=== PATIENT | male | born 1945 | race Caucasian/White ===

== ENCOUNTER 2017-03-16 13:29 | Observation (INO) ==
[2017-03-16] MEDS ORDERED: D5% in 0.9% NACL 1,000 ML IVC SCH (14:45)
--- NOTE | 2017-03-16 14:46 | Emergency Department Note ---
Disposition Clinical Impression: Generalized weakness Anemia Qualifiers: Anemia type: unspecified type Qualified Code(s): D64.9 - Anemia, unspecified Disposition: Admitted As Inpatient Condition: Undetermined [facility]Primary Care Provider[facility] - Forms: ED Satisfaction Letter Time of Disposition: 15:34 Weakness HPI - General Chief complaint: ED Weakness Stated complaint: blood transfusion/cancer center Time Seen by Provider: 03/16/17 13:57 Source: patient Mode of arrival: wheelchair Limitations: no limitations Nursing Notes Reviewed: Yes Vital Signs Reviewed: Yes - History of Present Illness HPI Narrative: 71-year-old male with history of lymphoma arrives [facility] emergency department after attempting to go into [facility] for a blood transfusion for anemia associated with his chemotherapy. The patient states that upon him transported in to the cancer center he had an episode of bowel incontinence and felt extremely weak. The patient states that he went home and then had an episode where he collapsed without falling or striking his head with no loss of consciousness at home in his driveway. The patient states he was almost too weak to get into the vehicle to come to the emergency department for evaluation. The patient has had episodes of anemia over the course of the past month with his hemoglobin being around 8.5. The patient's hemoglobin yesterday was 8.7. We will repeat the patient's labs here in the emergency department today. The patient will be given IV dextrose fluids and likely admitted to the hospital for weakness and transfusion upon admission. We discussed the case with the on-call oncologist, Dr. Gray, who agreed to this plan and agreed that the patient can be transfused once the patient is admitted to the floor. They will be consulted on the patient consulted started in place. Pt Subjective Complaint: generalized weakness/fatigue Duration: constant, gradually worsening Location: generalized Migration: none Pain Severity: none Pain Scale: 0 Improves with: none Worsens with: none Context: history of similar Associated symptoms: Reports: denies other symptoms - Related Data Home Medications Medication Instructions Recorded Confirmed Acetaminophen [Pain Relief] 500 mg PO Q4-6H PRN 11/03/16 03/16/17 Dabigatran [Pradaxa] 150 mg PO BID 11/03/16 03/16/17 Digoxin [Lanoxin] 0.25 mg PO DAILY 11/03/16 03/16/17 Diltiazem HCl [Diltiazem 24Hr Cd] 180 mg PO DAILY 11/03/16 03/16/17 Metoprolol XL (24 HR) Succ [Toprol 50 mg PO DAILY 03/16/17 03/16/17 XL] Petrolatum,White [Aloe [place]] 1 appl TP ONCE 03/16/17 03/16/17 Previous Rx's Medication Instructions Recorded Dexamethasone [Decadron] 4 mg PO BID #40 tab 12/09/16 Magic Mouthwash [Magic Mouthwash 10 ml PO QID PRN #240 ml 12/09/16 BLM] Ondansetron [Zofran] 4 mg PO Q8HR PRN #90 tablet 12/09/16 Prochlorperazine Maleate 10 mg PO Q8HR PRN #90 tablet 12/09/16 [Compazine] Transparent Dressing [Tegaderm] 1 each TP DAILY #30 bandage 02/23/17 Allergies Allergy/AdvReac Type Severity Reaction Status Date / Time Erythromycin Base Allergy Hives Verified 03/16/17 13:47 codeine AdvReac Confusion Verified 03/16/17 13:47 tamsulosin [From Flomax] AdvReac Shortness Verified 03/16/17 14:59 Of Breath All systems ED: reviewed and negative except as stated. Constitutional: Reports: weakness, weight change (Decreased). Denies: fever, chills Cardiovascular: Denies: chest pain, palpitations, dyspnea on exertion, edema, syncope Respiratory: Denies: cough, dyspnea, wheezes, hemoptysis, stridor Gastrointestinal: Denies: abdominal pain, nausea, vomiting, diarrhea, constipation, hematemesis, melena, hematochezia Genitourinary: Denies: urgency, dysuria, frequency, hematuria Musculoskeletal: Denies: back pain, neck pain, arthralgia, myalgia Integumentary: Denies: rash, abrasion, lesions Neurological: Reports: weakness. Denies: headache, numbness, paresthesias, confusion, abnormal gait, vertigo Past Medical History - Past Medical History Attestation: Yes The following information was validated with the patient. Source: patient, old records reviewed Medical history: Reports: atrial fibrillation, cancer, COPD, hypertension Surgical history: Reports: other Psychiatric history: Reports: no psych history - Social History Smoking Status: Current some day smoker Smokeless Tobacco Status: Yes Alcohol use: Reports: none Drug use: Reports: none Physical Exam - General Limitations: no limitations General appearance: alert, in no apparent distress, cachectic - Head Head exam: atraumatic, normocephalic, normal inspection - Eye Eye exam: Present: normal appearance, PERRL, EOMI - ENT ENT exam: normal exam, normal oropharynx, mucous membranes moist - Neck Neck exam: Present: normal inspection, full ROM, trachea midline - Chest Chest inspection: Present: normal inspection, symmetric chest wall rise - Respiratory Respiratory exam: Present: normal lung sounds bilaterally - Cardiovascular Cardiovascular exam: Present: regular rate, normal rhythm, normal heart sounds - Abdominal Exam Abdominal exam: Present: soft, Non-Tender. Absent: tenderness, distention, guarding, rebound, rigidity - Extremities Exam Extremities exam: Present: full ROM, pedal edema (1+ pitting). Absent: tenderness - Neurological Exam Neurological exam: Present: alert, oriented X3 Course Vital Signs Temperature 98.3 F 03/16/17 13:41 Pulse Rate 105 03/16/17 13:41 Respiratory Rate 18 03/16/17 13:41 Blood Pressure 91/62 03/16/17 13:41 O2 Sat by Pulse Oximetry 94 03/16/17 13:41 Temperature 98.3 F 03/16/17 13:41 Pulse Rate 87 03/16/17 14:16 Respiratory Rate 20 03/16/17 14:16 Blood Pressure 106/77 03/16/17 14:16 O2 Sat by Pulse Oximetry 93 03/16/17 14:16 Oxygen Delivery Oxygen Delivery Room Air Weakness - [facility] Narrative Medical decision making narrative: Patient was started on IV fluids as well as labs. The patient's CBC demonstrates hemoglobin that has dropped to 8.1. We will admit the patient to the hospitalist at this time. Accepted by Dr. King. - Medical Records Medical records reviewed: Yes I reviewed the patient's medical records. - Lab Data Lab results reviewed: Yes I reviewed the patient's lab results. Result diagrams: 03/16/17 14:47 03/16/17 14:47 Lab Results 03/16/17 03/16/17 Range/Units 14:47 14:47 WBC 8.9 (4.3-11.1) K/mcL RBC 2.83 L (4.19-5.50) M/mcL Hgb 8.1 L (12.9-16.9) g/dL Hct 25.5 L (37.5-50.1) % MCV 90.1 (83.0-100.0) fL MCH 28.6 (28.0-33.3) pg MCHC 31.8 (31.6-35.5) g/dL RDW 17.2 H (11.5-14.5) % Plt Count 307 (140-400) K/mcL MPV 10.8 (9.4-12.4) fL Immature Gran % 2.7 (0-4) % Seg Neutrophils % 85.3 % Lymphocytes % 4.0 % Monocytes % 7.7 % Eosinophils % 0.1 % Basophils % 0.2 % Neutrophils # 7.6 (1.6-8.9) K/mcL Lymphocytes # 0.4 L (0.6-4.6) K/mcL Monocytes # 0.7 (0.0-1.3) K/mcL Eosinophils # 0.0 (0.0-0.6) K/mcL Basophils # 0.0 (0.0-0.2) K/mcL Sodium 130 L (136-145) mEq/L Potassium 4.2 (3.5-4.5) mEq/L Chloride 94 L (98-109) mEq/L Carbon Dioxide 28 (19-29) mEq/L BUN 19 (8-26) mg/dL Creatinine 0.79 (0.72-1.25) mg/dL Est GFR ( Amer) > 60 (> 60) Est GFR (Non-Af Amer) > 60 (> 60) BUN/Creatinine Ratio 24 (6-26) Glucose 92 (70-99) mg/dL Calculated Osmolality 272 L (280-300) Calcium 8.3 L (8.6-10.8) mg/dL Attestation Statement - Attestation Attestation: I examined this patient and my medical decision-making was reviewed with the Resident Physician, Dr. Ramos. I agree with the documented findings, disposition and treatment plan as described except to the extent set forth below. Patient is a 71-year-old white male with a history of lymphoma is being currently treated at the cancer center at [facility]. Patient was on his way into the cancer center for a blood transfusion today and had an episode of bowel incontinence and generalized weakness unable to ambulate. He returned home and was planning to come back to the cancer Center but complained of ongoing generalized weakness and actually stumbled and fell in his driveway but denies any injuries related to the fall did not hit his head no back pain patient denies any pain. Patient's daughter brings him into the emergency department today as he was instructed to do so by the cancer center and would likely require admission with IV fluid resuscitation as well as medicines for his symptoms. Patient with a hemoglobin of around 8.5 over the last month. Most recent value was 8.7. She is on Pradaxa for A. fib, but denies any bright red blood per rectum or tarry black stools. Patient with no other complaints today on evaluation besides generalized weakness. Patient's physical exam findings as documented. We started IV fluids and antiemetics on arrival with improvement in patient's blood pressure. Patient was tachycardic and hypotensive on arrival. We spoke with his oncologist at the cancer center who recommended to go ahead with transfusion and they will consult on the patient. We will discuss the case with the hospitalist. Labs done in the emergency department show hemoglobin today is 8.1. Patient is amenable to admission for further evaluation and treatment.
[2017-03-16 15:06] LABS: Basophils % 0.2 %; Eosinophils % 0.1 %; Hematocrit 25.5 % (37.5-50.1); Hemoglobin 8.1 g/dL (12.9-16.9); Immature Granulocytes % 2.7 % (0-4); Lymphocytes # 0.4 K/mcL (0.6-4.6); Mean Corpuscular HGB Conc 31.8 g/dL (31.6-35.5); Mean Corpuscular Hemoglobin 28.6 pg (28.0-33.3); Mean Corpuscular Volume 90.1 fL (83.0-100.0); Mean Platelet Volume 10.8 fL (9.4-12.4); Monocytes # 0.7 K/mcL (0.0-1.3); Monocytes % 7.7 %; Neutrophils # 7.6 K/mcL (1.6-8.9); Platelet Count 307 K/mcL (140-400); Red Blood Count 2.83 M/mcL (4.19-5.50); Red Cell Distribution Width 17.2 % (11.5-14.5); Segmented Neutrophils % 85.3 %
[2017-03-16 15:10] LABS: BUN/Creatinine Ratio 24 (6-26); Blood Urea Nitrogen 19 mg/dL (8-26); Calcium 8.3 mg/dL (8.6-10.8); Carbon Dioxide 28 mEq/L (19-29); Chloride 94 mEq/L (98-109); Glucose 92 mg/dL (70-99); Osmolality,Calculated 272 (280-300); Potassium 4.2 mEq/L (3.5-4.5); Sodium 130 mEq/L (136-145); eGFR For African Americans > 60 (> 60); eGFR For Non-African Americans > 60 (> 60)
[2017-03-16] MEDS ORDERED: Acetaminophen 325 MG TABLET PO PRN (17:34)
[2017-03-16] MEDS ORDERED: *HR* Promethazine 25 MG/ML VIAL IVP PRN (17:34)
[2017-03-16] MEDS ORDERED: *HR* Morphine 2 MG/ML SYRINGE IVP PRN (17:34)
[2017-03-16] MEDS ORDERED: *HR* HYDROcodone/Acet 5/325 mg TABLET PO PRN (17:34)
[2017-03-16] MEDS ORDERED: Naloxone 0.4 MG/ML INJ IVP PRN (17:34)
[2017-03-16] MEDS ORDERED: Ondansetron 4 MG/2 ML VIAL IVP PRN (17:34)
[2017-03-16] MEDS ORDERED: Magic Mouthwash 10 ML UD Cup PO PRN (17:54)
--- NOTE | 2017-03-16 17:54 | Internal Med History&Physical ---
Date of Encounter: 03/16/17 Time of Encounter: 16:00 Assessment and Plan (1) Anemia Current visit: Yes Status: Acute Will admit the pt into Tele for observation His Hb dropped down to 8.1 from 11 in 6 weeks due to chemotherapy And he is symptomatic now Agree with Heme Onc eval to transfuse the pt 1 U PRBC Pt denied any melena / hematuria check Iron profile in AM Qualifiers: Anemia type: unspecified type Qualified Code(s): D64.9 - Anemia, unspecified (2) Dehydration Current visit: No Status: Acute Due to active chemo cont IV fluids (3) HTN (hypertension) Current visit: Yes Status: Acute resumed home meds Qualifiers: Qualified Code(s): I10 - Essential (primary) hypertension (4) Generalized weakness Current visit: Yes Status: Acute due to Hodgkin's lymphoma and active chemo PT / OT eval (5) Hodgkin's lymphoma Current visit: No Status: Acute Heme Onc consulted Qualifiers: Qualified Code(s): C81.90 - Hodgkin lymphoma, unspecified, unspecified site (6) Paroxysmal a-fib Current visit: Yes Status: Acute rate controlled with home med Cardizem and Metoprolol On Pradaxa for anticoag (7) Bilateral leg edema Current visit: Yes Status: Chronic could be dependent edema - pt stated he did try lasix before, but his swelling never went away recommend to keep elevated legs hold on diuretics now due to dehydration Internal Medicine - H&P: HPI Chief complaint: Generalized weakness / lethargic Admitted From: Emergency Dept Plans for Post Hospital Care: Home History of present illness: Mr. Yañez is a 71 year old male with history of Paroxysmal Afib on Pradaxa for anticoagulation, who also had prostate cancer had multiple radiotherapy 4yrs ago, now recently diagnosed with Hodgkin's lymphoma presented to [facility] emergency department after attempting to go into [facility] cancer Center for a blood transfusion for anemia associated with his chemotherapy. The patient states that upon him transported in to the cancer center he had an episode of bowel incontinence and felt extremely weak. The patient states that he went home and then had an episode where he collapsed without falling or striking his head with no loss of consciousness at home in his driveway. The patient states he was almost too weak to get into the vehicle to come to the emergency department for evaluation. The patient has had episodes of anemia over the course of the past month with his hemoglobin being around 8.5. The patient's hemoglobin yesterday was 8.7 and today in the ER it was 8.1. ER attending discussed the case with the on-call oncologist, Dr. Gray, who agreed to this plan and agreed that the patient can be transfused once the patient is admitted to the floor. Pt denied any CP / SOB. feels little better now with Iv fluids. Past Med Surg Social Fam HX - Past Medical History Medical history: atrial fibrillation, cancer, COPD, hypertension Psychiatric history: no psych history - Past Surgical History Surgical History: other - Social History Smoking Status: Current some day smoker Smokeless Tobacco Status: Yes Alcohol use: none Drug use: none Internal Medicine - H&P: Meds Acetaminophen [Pain Relief] 500 mg PO Q4-6H PRN 11/03/16 [History] Dabigatran [Pradaxa] 150 mg PO BID 11/03/16 [History] Digoxin [Lanoxin] 0.25 mg PO DAILY 11/03/16 [History] Diltiazem HCl [Diltiazem 24Hr Cd] 180 mg PO DAILY 11/03/16 [History] Dexamethasone [Decadron] 4 mg PO BID #40 tab 12/09/16 [Rx] Magic Mouthwash [Magic Mouthwash BLM] 10 ml PO QID PRN #240 ml 12/09/16 [Rx] Ondansetron [Zofran] 4 mg PO Q8HR PRN #90 tablet 12/09/16 [Rx] Prochlorperazine Maleate [Compazine] 10 mg PO Q8HR PRN #90 tablet 12/09/16 [Rx] Transparent Dressing [Tegaderm] 1 each TP DAILY #30 bandage 02/23/17 [Rx] Metoprolol XL (24 HR) Succ [Toprol XL] 50 mg PO DAILY 03/16/17 [History] Petrolatum,White [Aloe [place]] 1 appl TP ONCE 03/16/17 [History] 3 Allergy/AdvReac Type Severity Reaction Status Date / Time Erythromycin Base Allergy Hives Verified 03/16/17 13:47 codeine AdvReac Confusion Verified 03/16/17 13:47 tamsulosin [From Flomax] AdvReac Shortness Verified 09/21/17 14:59 Of Breath All Systems PM: A 10-system review of systems was performed and is negative for pertinent findings except as documented above in the HPI. Review of systems: All the systems are reviewed everything is benign except the systems and symptoms I mentioned in the history of present illness - Constitutional Vitals: Temp Pulse Resp BP Pulse Ox 97.5 F L 102 16 117/72 93 03/16/17 17:49 03/16/17 17:49 03/16/17 17:49 03/16/17 17:49 03/16/17 17:49 General appearance: Present: A&O X 3, no acute distress Exam: Looks weak and lethargic - Head Head exam: Present: atraumatic, normal inspection - Respiratory Respiratory exam: Present: decreased breath sounds, wheezes (mild). Absent: rales, respiratory distress, rhonchi - Cardiovascular Cardiovascular exam: Present: RRR, +S1, +S2. Absent: systolic murmur - GI/Abdominal GI/Abdominal exam: Present: soft. Absent: rebound, rigid, tenderness - Extremities Exam Extremities exam: Present: pedal edema (2+). Absent: calf tenderness, tenderness - Psychiatric Psychiatric exam: Present: depressed Internal Med - H&P Results - Labs CBC & Chem 7: 03/16/17 14:47 03/16/17 14:47
[2017-03-16] MEDS: D5% in 0.9% NACL 1,000 ML IVC SCH (18:21)
[2017-03-16] MEDS: *HR* Dabigatran 150 MG CAPSULE PO SCH (21:34)
[2017-03-16] MEDS: Famotidine 20 MG TABLET PO SCH (21:34)
[2017-03-16] MEDS ORDERED: 0.9 % Sodium Chloride 250 ML ONE (22:08)
[2017-03-17 03:47] LABS: Basophils % 0.3 %; Eosinophils % 0.3 %; Hematocrit 27.2 % (37.5-50.1); Hemoglobin 8.8 g/dL (12.9-16.9); Immature Granulocytes % 2.3 % (0-4); Lymphocytes # 0.4 K/mcL (0.6-4.6); Lymphocytes % 3.4 %; Mean Corpuscular HGB Conc 32.4 g/dL (31.6-35.5); Mean Corpuscular Volume 89.8 fL (83.0-100.0); Mean Platelet Volume 10.8 fL (9.4-12.4); Monocytes # 0.9 K/mcL (0.0-1.3); Neutrophils # 9.2 K/mcL (1.6-8.9); Platelet Count 288 K/mcL (140-400); Red Blood Count 3.03 M/mcL (4.19-5.50); Red Cell Distribution Width 17.1 % (11.5-14.5); Segmented Neutrophils % 85.7 %
[2017-03-17 04:00] LABS: % Iron Saturation 23 % (20-55); Iron 25 mcg/dL (65-175); Transferrin 79 mg/dL (174-364)
[2017-03-17 04:06] LABS: Alanine Aminotransferase 11 Units/L (0-55); Albumin/Globulin Ratio 0.8 (1.1-2.2); Alkaline Phosphatase 123 Units/L (38-126); Aspartate Amino Transferase 18 Units/L (5-34); BUN/Creatinine Ratio 20 (6-26); Bilirubin,Total 0.8 mg/dL (0.2-1.2); Blood Urea Nitrogen 16 mg/dL (8-26); Calcium 7.8 mg/dL (8.6-10.8); Carbon Dioxide 25 mEq/L (19-29); Chloride 97 mEq/L (98-109); Globulin 2.4 g/dL (2.4-3.5); Glucose 106 mg/dL (70-99); Magnesium 1.4 mg/dL (1.6-2.6); Osmolality,Calculated 274 (280-300); Phosphorous 3.1 mg/dL (2.3-4.7); Sodium 131 mEq/L (136-145); Total Protein 4.3 g/dL (6.0-8.3); eGFR For African Americans > 60 (> 60); eGFR For Non-African Americans > 60 (> 60)
[2017-03-17 04:09] LABS: Albumin 1.9 g/dL (3.5-5.0)
[2017-03-17] MEDS ORDERED: Magnesium Sulfate 2 GM in D5% in Water 100 ML IVPB ONE (08:10)
[2017-03-17] MEDS: D5% in 0.9% NACL 1,000 ML IVC SCH ×2 (08:10→08:30)
[2017-03-17] MEDS: *HR* Dabigatran 150 MG CAPSULE PO SCH ×2 (08:13→08:15)
[2017-03-17] MEDS: Famotidine 20 MG TABLET PO SCH (08:13)
[2017-03-17] MEDS: Diltiazem CD (24hr) 180 MG CAPSULE PO SCH ×2 (08:13→08:18)
[2017-03-17] MEDS: *HR* Digoxin 0.25 MG TABLET PO SCH ×2 (08:13→08:18)
[2017-03-17] MEDS ORDERED: Metoprolol XL (24 HR) Succ 50 MG TAB.ER.24H PO SCH (09:00)
--- NOTE | 2017-03-17 09:00 | Internal Med Progress Note ---
<AlberkelalyseKirby jarrett - Last Filed: 03/17/17 17:42> Date of Encounter: 03/17/17 Time of Encounter: 08:40 - Assessment and plan (1) Anemia Status: Acute Assessment and plan: Hgb has increased from 8.1 to 8.8. Patient was transfused yesterday with 1 U PRBC. He is currently asymptomatic. he denies any hematochezia or hematuria. Iron profile shows an Iron of 25, transferrin of 79, and an MCV of 89, which suggests a normocytic anemia secondary chronic diases (hodgkin's) and chemotherapy. - Continue to monitor Hgb. Qualifiers: Anemia type: unspecified type Qualified Code(s): D64.9 - Anemia, unspecified (2) Dehydration Status: Acute Assessment and plan: I/O shows +2350 ml. Patient is not tachychardic. His is still a bit hypotensive at 92/58. - Continue IVF. (3) HTN (hypertension) Status: Chronic Assessment and plan: BP at 92/58. - Continue home meds. Qualifiers: Qualified Code(s): I10 - Essential (primary) hypertension (4) Generalized weakness Status: Acute Assessment and plan: Due to Hodgkin's lymphoma and active chemo. Patient feeling better today. - PT / OT eval (5) Hodgkin's lymphoma Status: Acute Qualifiers: Qualified Code(s): C81.90 - Hodgkin lymphoma, unspecified, unspecified site (6) Paroxysmal a-fib Status: Acute Assessment and plan: Rate controlled with home med Cardizem and Metoprolol. On Pradaxa for anticoag (7) Bilateral leg edema Status: Chronic Assessment and plan: Could be dependent edema - pt stated he did try lasix before, but his swelling never went away - recommend to keep elevated legs - hold on diuretics now due to dehydration and hypotension. (8) Hypomagnesemia Status: Acute Assessment and plan: Magnesium at 1.4 today. - 2 gm Mg IV. - Subjective Interval history: catherine Yañez is a 71 year old male with history of Paroxysmal Afib on Pradaxa for anticoagulation, who also had prostate cancer had multiple radiotherapy 4yrs ago, now recently diagnosed with Hodgkin's lymphoma presented to [facility] emergency department after attempting to go into [facility] cancer Center for a blood transfusion for anemia associated with his chemotherapy. The patient states that upon him transported in to the cancer center he had an episode of bowel incontinence and felt extremely weak. When he pulled into his driveway, patient felt very weak and lay on the ground. He denies that he fell, had LOC, or sustained an injury. When patient was brought here, he was hypotensive and tachycardic. He was given IVF and subsequently transfused with 1 unit of PRBC. When seen today, patient says he feels much better than yesterday and is able to walk to the bathroom. he says he still has some weakness but it is minor. He denies any hematochezia or hematuria. Patient also denies any POS[place], chest pain, light-headedness, syncope , shortness of breath, fever, chills, or abdominal pain. - Constitutional Vitals: Temp Pulse Resp BP Pulse Ox 97.6 F 91 13 92/58 96 03/17/17 07:42 03/17/17 07:42 03/17/17 07:42 03/17/17 07:42 03/17/17 03:27 General appearance: Present: A&O X 3, no acute distress - Respiratory Respiratory exam: Present: CTAB. Absent: respiratory distress, rhonchi, wheezes , tachypnea - Cardiovascular Cardiovascular exam: Present: RRR, +S1, +S2. Absent: systolic murmur Additional comments: No bruits appreciated in carotids. - GI/Abdominal GI/Abdominal exam: Present: normal bowel sounds, soft. Absent: guarding, rebound, tenderness - Extremities Exam Extremities exam: Present: normal capillary refill, pedal edema, radial pulses palpable and symmetrical. Absent: cyanotic, tenderness Additional comments: Pedal pulses intact bilaterally. +2 b/l pitting edema of lower extremities. Internal Medicine: Result - Labs CBC & Chem 7: 03/17/17 03:11 03/17/17 03:11 Labs: Short CBC 03/17/17 Range/Units 03:11 WBC 10.7 (4.3-11.1) K/mcL Hgb 8.8 L (12.9-16.9) g/dL Hct 27.2 L (37.5-50.1) % Plt Count 288 (140-400) K/mcL Neutrophils # 9.2 H (1.6-8.9) K/mcL BMP 03/17/17 03:11 Sodium 131 L Potassium 4.0 Chloride 97 L Carbon Dioxide 25 BUN 16 Creatinine 0.79 Glucose 106 H Calcium 7.8 L Liver Function 03/17/17 Range/Units 03:11 Total Bilirubin 0.8 (0.2-1.2) mg/dL AST 18 (5-34) Units/L ALT 11 (0-55) Units/L Alkaline Phosphatase 123 (38-126) Units/L Albumin 1.9 L D (3.5-5.0) g/dL Laboratory Tests 03/17/17 03:11 Magnesium 1.4 L Consult Discharge Plan - Plan Instructions: Atrial Fibrillation (DC), Chronic Hypertension (DC), Anemia (DC) Additional Instructions: Follow-up appointments: If there is not an appointment listed below, please call your physician and schedule a follow-up appointment. If you have congestive heart failure and your symptoms return, make an appointment with your physician. Medication List: Carry an up to date list of medications you are taking at all time. We have given you an updated medication list including any new medications that you have been prescribed. Please provide that list to your primary provider Symptoms: If your condition changes or you experience any of the following symptoms, notify your physician immediately: Unusual or worsening pain, fever, persistent nausea and vomiting, bleeding, increase in swelling (especially in your legs), sudden weight gain, extreme dizziness, chest pain, increased drainage or redness from a wound or incision. Go to the emergency department if you experience a problem with breathing. Weights: If you have a history of swelling or shortness of breath, weigh yourself daily and notify your physician if you have a weight gain of two or more pounds in one day or 5 or more pounds in a week. If you experience any of the warning signs for stroke: Sudden numbness or weakness of the face, arm or leg; especially on one side of the body, sudden confusion, trouble speaking or understanding, sudden trouble seeing in one or both eyes, sudden trouble walking, dizziness, loss of balance or coordination, sudden sever headache with no cause; Call 911 or go to the emergency room. Stroke is a medical emergency. Some risk factors for stroke: Age, cigarette smoking, diabetes, excessive alcohol consumption, family history , high blood pressure, overweight, physical inactivity, prior stroke, heart attack, diagnosis of carotid artery stenosis or other artery disease. If you smoke, STOP: Smoking or tobacco use significantly increases your risk of heart and lung disease. Your chance of disease greatly increases if you continue to smoke. For more information, call the [employer] tobacco quit line for smoking cessation QUIT-NOW ( ) Referrals: [facility],PCP [Primary Care Provider] - Prescriptions: Metoprolol XL (24 HR) Succ [Toprol Xl] 25 mg PO DAILY #30 tab.er.24h <Michel Brooks - Last Filed: 03/17/17 18:28> Date of Encounter: 03/17/17 - Constitutional Vitals: Temp Pulse Resp BP Pulse Ox 98.3 F 93 18 98/65 93 03/17/17 11:49 03/17/17 11:49 03/17/17 11:49 03/17/17 11:49 03/17/17 11:49 Internal Medicine: Result - Labs CBC & Chem 7: 03/17/17 03:11 03/17/17 03:11 Labs: Short CBC 03/17/17 Range/Units 03:11 WBC 10.7 (4.3-11.1) K/mcL Hgb 8.8 L (12.9-16.9) g/dL Hct 27.2 L (37.5-50.1) % Plt Count 288 (140-400) K/mcL Neutrophils # 9.2 H (1.6-8.9) K/mcL BMP 03/17/17 03:11 Sodium 131 L Potassium 4.0 Chloride 97 L Carbon Dioxide 25 BUN 16 Creatinine 0.79 Glucose 106 H Calcium 7.8 L Liver Function 03/17/17 Range/Units 03:11 Total Bilirubin 0.8 (0.2-1.2) mg/dL AST 18 (5-34) Units/L ALT 11 (0-55) Units/L Alkaline Phosphatase 123 (38-126) Units/L Albumin 1.9 L D (3.5-5.0) g/dL - Attending Attestation I examined this patient and my medical decision-making was reviewed with the Resident Physician. I agree with the documented findings, disposition and treatment plan as described except to the extent set forth below. Patient presented to the hospital with generalized weakness. He received one unit blood transfusion with appropriate response in hemoglobin. He currently reports feeling back to baseline. Plan: Stop IV fluids. Patient is stable for discharge home.
[2017-03-17 11:50] VITALS: BP 98/65
--- NOTE | 2017-03-17 14:28 | Discharge Summary ---
<Kirby Sharp - Last Filed: 03/17/17 17:41> Date of Encounter: 03/17/17 Time of Encounter: 08:40 - Discharge Diagnosis (1) Anemia Priority: Primary Status: Acute Qualifiers: Anemia type: unspecified type Qualified Code(s): D64.9 - Anemia, unspecified (2) Dehydration Priority: Primary Status: Acute (3) HTN (hypertension) Priority: Primary Status: Chronic Qualifiers: Qualified Code(s): I10 - Essential (primary) hypertension (4) Generalized weakness Priority: Primary Status: Acute (5) Hodgkin's lymphoma Priority: Primary Status: Acute Qualifiers: Qualified Code(s): C81.90 - Hodgkin lymphoma, unspecified, unspecified site (6) Paroxysmal a-fib Priority: Primary Status: Acute (7) Bilateral leg edema Priority: Primary Status: Chronic (8) Hypomagnesemia Priority: Primary Status: Acute - Discharge Medications Prescriptions: Metoprolol XL (24 HR) Succ [Toprol Xl] 25 mg PO DAILY #30 tab.er.24h Home Medications: Acetaminophen [Pain Relief] 500 mg PO Q4-6H PRN 11/03/16 [History] Dabigatran [Pradaxa] 150 mg PO BID 11/03/16 [History] Digoxin [Lanoxin] 0.25 mg PO DAILY 11/03/16 [History] Diltiazem HCl [Diltiazem 24Hr Cd] 180 mg PO DAILY 11/03/16 [History] Dexamethasone [Decadron] 4 mg PO BID #40 tab 12/09/16 [Rx] Magic Mouthwash [Magic Mouthwash BLM] 10 ml PO QID PRN #240 ml 12/09/16 [Rx] Ondansetron [Zofran] 4 mg PO Q8HR PRN #90 tablet 12/09/16 [Rx] Prochlorperazine Maleate [Compazine] 10 mg PO Q8HR PRN #90 tablet 12/09/16 [Rx] Transparent Dressing [Tegaderm] 1 each TP DAILY #30 bandage 02/23/17 [Rx] Petrolatum,White [Aloe [place]] 1 appl TP ONCE 03/16/17 [History] Metoprolol XL (24 HR) Succ [Toprol Xl] 25 mg PO DAILY #30 tab.er.24h 03/17/17 [ Rx] Allergies/Adverse Reactions: 3 Allergy/AdvReac Type Severity Reaction Status Date / Time Erythromycin Base Allergy Hives Verified 03/16/17 13:47 codeine AdvReac Confusion Verified 03/16/17 13:47 tamsulosin [From Flomax] AdvReac Shortness Verified 03/16/17 14:59 Of Breath Date of admission: 03/16/17 15:48 [facility]: [facility] Consults: 03/16/17 17:41 Consult to Occupational Therapy [CONS] Routine Comment: Evaluate, develop and implement POC Reason for Consult: physical deconditoning Consult to Physical Therapy [CONS] Routine Comment: Evaluate, develop and implement POC Reason for Consult: physical deconditioning 03/17/17 11:30 Consult to Correction Warden [CONS] Routine Reason for SW Consult: Discharge planning 03/17/17 13:22 Consult to Nutrition [CONS] Routine Comment: Consulting Provider: NUTRITION Reason for Dietary Consult: PO Supplementation Discharging clinician: Michel Stone) Anticipated date of discharge: 03/17/17 - Patient Status Disposition: Home Health Service Condition: Undetermined - Discharge Instructions Instructions: Atrial Fibrillation (DC), Chronic Hypertension (DC), Anemia (DC) [facility]: [facility] [Primary Care Provider] - Additional Instructions: Follow-up appointments: If there is not an appointment listed below, please call your physician and schedule a follow-up appointment. If you have congestive heart failure and your symptoms return, make an appointment with your physician. Medication List: Carry an up to date list of medications you are taking at all time. We have given you an updated medication list including any new medications that you have been prescribed. Please provide that list to your primary provider Symptoms: If your condition changes or you experience any of the following symptoms, notify your physician immediately: Unusual or worsening pain, fever, persistent nausea and vomiting, bleeding, increase in swelling (especially in your legs), sudden weight gain, extreme dizziness, chest pain, increased drainage or redness from a wound or incision. Go to the emergency department if you experience a problem with breathing. Weights: If you have a history of swelling or shortness of breath, weigh yourself daily and notify your physician if you have a weight gain of two or more pounds in one day or 5 or more pounds in a week. If you experience any of the warning signs for stroke: Sudden numbness or weakness of the face, arm or leg; especially on one side of the body, sudden confusion, trouble speaking or understanding, sudden trouble seeing in one or both eyes, sudden trouble walking, dizziness, loss of balance or coordination, sudden sever headache with no cause; Call 911 or go to the emergency room. Stroke is a medical emergency. Some risk factors for stroke: Age, cigarette smoking, diabetes, excessive alcohol consumption, family history , high blood pressure, overweight, physical inactivity, prior stroke, heart attack, diagnosis of carotid artery stenosis or other artery disease. If you smoke, STOP: Smoking or tobacco use significantly increases your risk of heart and lung disease. Your chance of disease greatly increases if you continue to smoke. For more information, call the [employer] quit line for smoking cessation QUIT-NOW ( ) - Diet and Activity Activity: as per physical therapy Interval History: Mr. Yañez is a 71 year old male with history of Paroxysmal Afib on Pradaxa for anticoagulation, who also had prostate cancer had multiple radiotherapy 4yrs ago, now recently diagnosed with Hodgkin's lymphoma presented to [facility] emergency department after attempting to go into [facility] for a blood transfusion for anemia associated with his chemotherapy. Hospital course: Mr. Yañez is a 71 year old male with history of Paroxysmal Afib on Pradaxa for anticoagulation, who also had prostate cancer had multiple radiotherapy 4yrs ago, now recently diagnosed with Hodgkin's lymphoma presented to [facility] emergency department after attempting to go into [facility] for a blood transfusion for anemia associated with his chemotherapy. The patient states that upon him transported in to the cancer center he had an episode of bowel incontinence and felt extremely weak. When he pulled into his driveway, patient felt very weak and lay on the ground. He denies that he fell, had LOC, or sustained an injury. When patient was brought here, he was hypotensive and tachycardic. He was given IVF and subsequently transfused with 1 unit of PRBC. When seen today, patient says he feels much better than yesterday and is able to walk to the bathroom. he says he still has some weakness but it is minor. He denies any hematochezia or hematuria. Patient also denies any POSADA, chest pain, light-headedness, syncope , shortness of breath, fever, chills, or abdominal pain. His hemoglobin improved to 8.8, he has been afebrile and was not tachycardic. Patient's metoprolol was reduced to 25 mg due to his low blood pressure in the hospital. Patient will need to follow-up with his oncologist. - Time Spent with Patient Total time spent providing and/or coordinating discharge services: - Constitutional Vitals: Temp Pulse Resp BP Pulse Ox 98.3 F 93 18 98/65 93 03/17/17 11:49 03/17/17 11:49 03/17/17 11:49 03/17/17 11:49 03/17/17 11:49 General appearance: Present: A&O X 3, no acute distress - Respiratory Respiratory exam: Present: CTAB. Absent: respiratory distress, rhonchi, wheezes , tachypnea - Cardiovascular Cardiovascular exam: Present: RRR, +S1, +S2. Absent: systolic murmur - GI/Abdominal GI/Abdominal exam: Present: normal bowel sounds, soft. Absent: guarding, rebound, tenderness - Extremities Exam Extremities exam: Present: normal capillary refill, pedal edema, radial pulses palpable and symmetrical. Absent: cyanotic, tenderness Additional comments: Pedal pulses intact bilaterally. +2 b/l pitting edema of lower extremities. <Michel Brooks - Last Filed: 03/17/17 18:27> Date of Encounter: 03/17/17 Date of admission: 03/16/17 15:48 [facility] care physician: [facility] Consults: 03/16/17 17:41 Consult to Occupational Therapy [CONS] Routine Comment: Evaluate, develop and implement POC Reason for Consult: physical deconditoning Consult to Physical Therapy [CONS] Routine Comment: Evaluate, develop and implement POC Reason for Consult: physical deconditioning 03/17/17 11:30 Consult to Correction Warden [CONS] Routine Reason for SW Consult: Discharge planning 03/17/17 13:22 Consult to Nutrition [CONS] Routine Comment: Consulting Provider: NUTRITION Reason for Dietary Consult: PO Supplementation Hospital course: Mr. Yañez is a 71 year old male - Time Spent with Patient Total time spent providing and/or coordinating discharge services: - Constitutional Vitals: Temp Pulse Resp BP Pulse Ox 98.3 F 93 18 98/65 93 03/17/17 11:49 03/17/17 11:49 03/17/17 11:49 03/17/17 11:49 03/17/17 11:49 - Attending Attestation I examined this patient and my medical decision-making was reviewed with the Resident Physician. I agree with the documented findings, disposition and treatment plan as described except to the extent set forth below. Patient presented to the hospital with generalized weakness. He received one unit blood transfusion with appropriate response in hemoglobin. He currently reports feeling back to baseline. Plan: Stop IV fluids. Patient is stable for discharge home.
--- NOTE | 2017-03-17 15:00 | Physician Discharge Referral ---
Home Health/Hosp Referral Info Transfer to: Home Health Attending Provider: Dr. Brooks Provider in Charge Post Discharge: PCP - Diagnosis (1) Anemia Priority: Primary Status: Acute (2) Dehydration Priority: Primary Status: Acute (3) HTN (hypertension) Priority: Primary Status: Chronic (4) Generalized weakness Priority: Primary Status: Acute (5) Hodgkin's lymphoma Priority: Primary Status: Acute (6) Paroxysmal a-fib Priority: Primary Status: Acute (7) Bilateral leg edema Priority: Primary Status: Chronic (8) Hypomagnesemia Priority: Primary Status: Acute - Respiratory Orders Smoking Cessation: Smoking cessation has been advised. For more information, call the [place] [employer] Quit Line at 8-787-DWPH-NOW. - Diet/Nutrition Diet/Nutrition Orders: Cardiac - Activity Activity Orders: Walker - Services Needed Following services are medically necessary services: Home Health Aide - Transfer Medications Prescriptions: Metoprolol XL (24 HR) Succ [Toprol Xl] 25 mg PO DAILY #30 tab.er.24h Home Medications: Acetaminophen [Pain Relief] 500 mg PO Q4-6H PRN 11/03/16 [History] Dabigatran [Pradaxa] 150 mg PO BID 11/03/16 [History] Digoxin [Lanoxin] 0.25 mg PO DAILY 11/03/16 [History] Diltiazem HCl [Diltiazem 24Hr Cd] 180 mg PO DAILY 11/03/16 [History] Dexamethasone [Decadron] 4 mg PO BID #40 tab 12/09/16 [Rx] Magic Mouthwash [Magic Mouthwash BLM] 10 ml PO QID PRN #240 ml 12/09/16 [Rx] Ondansetron [Zofran] 4 mg PO Q8HR PRN #90 tablet 12/09/16 [Rx] Prochlorperazine Maleate [Compazine] 10 mg PO Q8HR PRN #90 tablet 12/09/16 [Rx] Transparent Dressing [Tegaderm] 1 each TP DAILY #30 bandage 02/23/17 [Rx] Petrolatum,White [Aloe [place] [address]] 1 appl TP ONCE 03/16/17 [History] Metoprolol XL (24 HR) Succ [Toprol Xl] 25 mg PO DAILY #30 tab.er.24h 03/17/17 [ Rx] Allergies/Adverse Reactions: 3 Allergy/AdvReac Type Severity Reaction Status Date / Time Erythromycin Base Allergy Hives Verified 03/16/17 13:47 codeine AdvReac Confusion Verified 03/16/17 13:47 tamsulosin [From Flomax] AdvReac Shortness Verified 03/16/17 14:59 Of Breath Certification: Further, I certify that my clinical findings support that this patient is homebound (i.e. absences from home require considerable and taxing effort and are for medical reasons or mosque services or infrequently or short duration when for other reasons) because: Homebound Reason: Patient requires assistance of a person or device to safely leave home, Leaving home requires considerable and taxing effort due to condition Attestation: My signature below is to certify that this patient is under my care and that I, or nurse practitioner, or a physician's medical records assistant working with me, has a face-to -face encounter with this patient.
== END 2017-03-17 16:00 | disposition home health service (06) ==
LOC: EMEROO 13:29 → 3BNU 13:29 → SUATTDRO 15:48 → 3BNU 17:24
PROVIDERS: ADMIT Family Medicine; ATTEND Internal Medicine

== ENCOUNTER 2017-04-19 21:04 | Inpatient (IN) ==
--- NOTE | 2017-04-19 21:22 | Emergency Department Note ---
Disposition Clinical Impression: Elevated troponin, Neutropenic fever Neutropenia Qualifiers: Neutropenia type: unspecified Qualified Code(s): D70.9 - Neutropenia, unspecified Cellulitis Qualifiers: Site of cellulitis: extremity Site of cellulitis of extremity: upper extremity Laterality: left Qualified Code(s): L03.114 - Cellulitis of left upper limb Disposition: Admitted As Inpatient Condition: Fair Time of Disposition: 03:47 General Adult HPI - General Chief complaint: ED Weakness Stated complaint: Weak Time Seen by Provider: 04/19/17 21:20 Source: patient Limitations: no limitations Nursing Notes Reviewed: Yes Vital Signs Reviewed: Yes - History of Present Illness HPI Narrative: Mr. Yañez, 71-year-old male, presents from home for evaluation of progressive weakness over the past 3 days and fever with chills onset this afternoon. MAXIMUM TEMPERATURE 101.8 by mouth at home. Prior to these symptoms , patient felt great, was exceeding expectations on his physical therapy, and had no complaints. He still has a healthy appetite with no nausea or vomiting. Patient has a history of Hodgkin's lymphoma with a port in place. Last chemotherapy was one week ago. Patient also notes upper sternal chest tightness which each abuse to his history of COPD. Patient also notes erythema of his left hand over the knuckle of his index finger. He removed a piece of glass foreign body from that area yesterday after accidentally breaking glass. PMH: A. fib, Hodgkin's lymphoma, COPD, hypertension Oncologist: [facility] Pain Scale: 7 - Related Data Home Medications Medication Instructions Recorded Confirmed Acetaminophen [Pain Relief] 500 mg PO Q4-6H PRN 11/03/16 04/03/17 Dabigatran [Pradaxa] 150 mg PO BID 11/03/16 04/03/17 Digoxin [Lanoxin] 0.25 mg PO DAILY 11/03/16 04/03/17 Diltiazem HCl [Diltiazem 24Hr Cd] 180 mg PO DAILY 11/03/16 04/03/17 Petrolatum,White [Aloe [place]] 1 appl TP ONCE 03/16/17 04/03/17 Previous Rx's Medication Instructions Recorded Dexamethasone [Decadron] 4 mg PO BID #40 tab 12/09/16 Magic Mouthwash [Magic Mouthwash 10 ml PO QID PRN #240 ml 12/09/16 BLM] Ondansetron [Zofran] 4 mg PO Q8HR PRN #90 tablet 12/09/16 Prochlorperazine Maleate 10 mg PO Q8HR PRN #90 tablet 12/09/16 [Compazine] Metoprolol XL (24 HR) Succ [Toprol 25 mg PO DAILY #30 tab.er.24h 03/17/17 Xl] Handicap Placard 1 each .ROUTE AD #1 each 04/03/17 Allergies Allergy/AdvReac Type Severity Reaction Status Date / Time Erythromycin Base Allergy Hives Verified 04/19/17 21:09 codeine AdvReac Confusion Verified 04/19/17 21:09 tamsulosin [From Flomax] AdvReac Shortness Verified 04/19/17 21:09 Of Breath All systems ED: reviewed and negative except as stated. Past Medical History - Past Medical History Medical history: Reports: atrial fibrillation, cancer, COPD, hypertension Surgical history: Reports: other Psychiatric history: Reports: no psych history - Social History Smoking Status: Current some day smoker Smokeless Tobacco Status: Yes Alcohol use: Reports: none Drug use: Reports: none Physical Exam Vital Signs Reviewed General: Patient is alert, oriented, and in no acute distress. He appears pale , cachectic. HEENT: No facial asymmetry. Head is normocephalic and atraumatic. PERRL, EOMI. oral mucosa tacky. Trachea midline. Cardiovascular: Heart regular rate and rhythm without clicks, rubs, gallops, or murmurs. No JVD. PMI nondisplaced. No pedal edema. Bilateral radial posterior tibial pulses 2/4 equal. Respiratory: Symmetric chest rise with good respiratory effort. Bilateral breath sounds are clear without wheezing, crackles, or rhonchi. Abdomen: Scaphoid. Bowel sounds present normoactive x-4 quadrants. Abdomen is soft, nondistended, and nontender. No organomegaly noted. Musculoskeletal: Muscle strength 5/5 and symmetric bilaterally in upper and lower extremities. DTRs 2/4 and symmetric bilaterally in upper and lower extremities. Psych: Patient's affect is appropriate for situation. - General Limitations: no limitations General appearance: alert, in no apparent distress Course Course Narrative: Patient's lab work is concerning for neutropenia. Given his history of recent fever (though afebrile intake) will be a management for neutropenic fever. Additionally, patient has left hand cellulitis; will cover him as well. X-ray left hand shows no foreign bodies. Additionally, he has a elevation in troponin of 0.04. We will provide aspirin at this time continued medical management. I discussed the patient with the admitting hospitalist, Dr. Mancini, who agrees to accept the patient for continued evaluation. Vital Signs Temperature 98.3 F 04/19/17 21:05 Pulse Rate 120 04/19/17 21:05 Respiratory Rate 22 04/19/17 21:05 Blood Pressure 98/66 04/19/17 21:05 O2 Sat by Pulse Oximetry 96 04/19/17 21:05 Temperature 97.9 F 04/20/17 03:58 Pulse Rate 103 04/20/17 03:58 Respiratory Rate 14 04/20/17 03:58 Blood Pressure 104/66 04/20/17 03:58 O2 Sat by Pulse Oximetry 95 04/20/17 03:58 Oxygen Delivery Oxygen Delivery Room Air Medical Decision Making - Lab Data Result diagrams: 04/19/17 21:39 04/19/17 21:39 Lab Results 04/19/17 04/19/17 04/19/17 Range/Units 21:39 21:39 21:39 WBC 0.9 L* (4.3-11.1) K/mcL RBC 3.56 L (4.19-5.50) M/mcL Hgb 10.5 L (12.9-16.9) g/dL Hct 31.8 L (37.5-50.1) % MCV 89.3 (83.0-100.0) fL MCH 29.5 (28.0-33.3) pg MCHC 33.0 (31.6-35.5) g/dL RDW 17.1 H (11.5-14.5) % Plt Count 71 L (140-400) K/mcL MPV 12.5 H (9.4-12.4) fL Seg Neutrophils % 18.0 % Band Neutrophils % 16.0 H (0-4) % Lymphocytes % 44.0 % Monocytes % 18.0 % Eosinophils % 4.0 % Neutrophils # 0.3 L (1.6-8.9) K/mcL Lymphocytes # 0.4 L (0.6-4.6) K/mcL Monocytes # 0.2 (0.0-1.3) K/mcL Eosinophils # 0.0 (0.0-0.6) K/mcL Reactive Lymphocytes Present A (Not Present) Toxic Granulation Present A (Not Present) Platelet Estimate Decreased L (Normal) Large Platelets Present A (Not Present) Anisocytosis 1+ A (Not Present) Macrocytosis Present A (Not Present) Sodium 131 L (136-145) mEq/L Potassium 4.3 (3.5-4.5) mEq/L Chloride 95 L (98-109) mEq/L Carbon Dioxide 27 (19-29) mEq/L BUN 17 (8-26) mg/dL Creatinine 0.77 (0.72-1.25) mg/dL Est GFR ( Amer) > 60 (> 60) Est GFR (Non-Af Amer) > 60 (> 60) BUN/Creatinine Ratio 22 (6-26) Glucose 96 (70-99) mg/dL Calculated Osmolality 273 L (280-300) Calcium 8.7 (8.6-10.8) mg/dL Phosphorus (2.3-4.7) mg/dL Magnesium (1.6-2.6) mg/dL Total Bilirubin 0.8 (0.2-1.2) mg/dL AST 14 (5-34) Units/L ALT 25 (0-55) Units/L Alkaline Phosphatase 82 (38-126) Units/L Troponin I 0.04 H* (0-0.03) ng/mL Serum Total Protein 5.6 L (6.0-8.3) g/dL Albumin 3.0 L (3.5-5.0) g/dL Globulin 2.6 (2.4-3.5) g/dL Albumin/Globulin Ratio 1.2 (1.1-2.2) Urine Color (Yellow) Urine Clarity (Clear) Urine pH (5.0-8.0) pH Units Ur Specific [place] (1.010-1.025) Urine Protein (Neg-Trace) mg/dL Urine Glucose (UA) (Normal) mg/dL Urine Ketones (Negative) mg/dL Urine Blood (Negative) Urine Nitrite (Negative) Urine Bilirubin (Negative) Urine Urobilinogen (Normal) mg/dL Ur Leukocyte Esterase (Negative) Ur Culture Indicated? (NO) 04/19/17 04/19/17 Range/Units 21:39 22:18 WBC (4.3-11.1) K/mcL RBC (4.19-5.50) M/mcL Hgb (12.9-16.9) g/dL Hct (37.5-50.1) % MCV (83.0-100.0) fL MCH (28.0-33.3) pg MCHC (31.6-35.5) g/dL RDW (11.5-14.5) % Plt Count (140-400) K/mcL MPV (9.4-12.4) fL Seg Neutrophils % % Band Neutrophils % (0-4) % Lymphocytes % % Monocytes % % Eosinophils % % Neutrophils # (1.6-8.9) K/mcL Lymphocytes # (0.6-4.6) K/mcL Monocytes # (0.0-1.3) K/mcL Eosinophils # (0.0-0.6) K/mcL Reactive Lymphocytes (Not Present) Toxic Granulation (Not Present) Platelet Estimate (Normal) Large Platelets (Not Present) Anisocytosis (Not Present) Macrocytosis (Not Present) Sodium (136-145) mEq/L Potassium (3.5-4.5) mEq/L Chloride (98-109) mEq/L Carbon Dioxide (19-29) mEq/L BUN (8-26) mg/dL Creatinine (0.72-1.25) mg/dL Est GFR ( Amer) (> 60) Est GFR (Non-Af Amer) (> 60) BUN/Creatinine Ratio (6-26) Glucose (70-99) mg/dL Calculated Osmolality (280-300) Calcium (8.6-10.8) mg/dL Phosphorus 3.4 (2.3-4.7) mg/dL Magnesium 1.4 L (1.6-2.6) mg/dL Total Bilirubin (0.2-1.2) mg/dL AST (5-34) Units/L ALT (0-55) Units/L Alkaline Phosphatase (38-126) Units/L Troponin I (0-0.03) ng/mL Serum Total Protein (6.0-8.3) g/dL Albumin (3.5-5.0) g/dL Globulin (2.4-3.5) g/dL Albumin/Globulin Ratio (1.1-2.2) Urine Color Yellow (Yellow) Urine Clarity Clear (Clear) Urine pH 7.5 (5.0-8.0) pH Units Ur Specific [place] 1.018 (1.010-1.025) Urine Protein Negative (Neg-Trace) mg/dL Urine Glucose (UA) Normal (Normal) mg/dL Urine Ketones Negative (Negative) mg/dL Urine Blood Negative (Negative) Urine Nitrite Negative (Negative) Urine Bilirubin Negative (Negative) Urine Urobilinogen Normal (Normal) mg/dL Ur Leukocyte Esterase Negative (Negative) Ur Culture Indicated? NO (NO) Attestation Statement - Attestation Attestation: I, Kenneth Pham MD, personally evaluated this patient and discussed their management with the resident physician. I reviewed the resident's note and agree with the documented findings, medical decision making, and plan of care. 71-year-old male on chemotherapy presents to the emergency department complaining of increasing generalized weakness over the past 2-3 days. Subjective fever today. Patient had a small puncture wound to the left hand from a piece of broken glass to 3 days ago. This has had increasing redness and swelling and pain. No other specific symptoms. No increased cough or chest pain or shortness of breath. No abdominal pain. No vomiting or diarrhea. No urinary symptoms. No GI bleed symptoms. On examination patient is a well-developed well-nourished well-appearing elderly male in no acute distress. He is alert and oriented 3. There is no cyanosis or diaphoresis. Breath sounds are clear and equal bilaterally. Heart regular rate and rhythm. Abdomen soft and nontender with normal bowel sounds. There is some mild erythema and tenderness of the left hand. Labs reviewed. WBC 0.9. Urine negative. Chest x-ray shows a small acute left retrocardiac infiltrate suspicious for small or early pneumonia. There is underlying emphysema and scattered fibrotic changes. The hospitalist, Dr. Mancini, was consulted and accepted admission of the patient.
[2017-04-19 21:53] LABS: Hematocrit 31.8 % (37.5-50.1); Hemoglobin 10.5 g/dL (12.9-16.9); Mean Corpuscular Hemoglobin 29.5 pg (28.0-33.3); Mean Corpuscular Volume 89.3 fL (83.0-100.0); Mean Platelet Volume 12.5 fL (9.4-12.4); Monocytes # 0.2 K/mcL (0.0-1.3); Red Blood Count 3.56 M/mcL (4.19-5.50); Red Cell Distribution Width 17.1 % (11.5-14.5)
[2017-04-19 22:07] LABS: Alanine Aminotransferase 25 Units/L (0-55); Albumin/Globulin Ratio 1.2 (1.1-2.2); Alkaline Phosphatase 82 Units/L (38-126); Aspartate Amino Transferase 14 Units/L (5-34); BUN/Creatinine Ratio 22 (6-26); Bilirubin,Total 0.8 mg/dL (0.2-1.2); Blood Urea Nitrogen 17 mg/dL (8-26); Calcium 8.7 mg/dL (8.6-10.8); Carbon Dioxide 27 mEq/L (19-29); Chloride 95 mEq/L (98-109); Globulin 2.6 g/dL (2.4-3.5); Glucose 96 mg/dL (70-99); Osmolality,Calculated 273 (280-300); Potassium 4.3 mEq/L (3.5-4.5); Sodium 131 mEq/L (136-145); Total Protein 5.6 g/dL (6.0-8.3); eGFR For African Americans > 60 (> 60); eGFR For Non-African Americans > 60 (> 60)
[2017-04-19 22:09] LABS: Platelet Count 71 K/mcL (140-400)
[2017-04-19] MEDS ORDERED: Piperacillin/Tazobactam 3.375 GM in D5% in Water (Mini-Bag+) 100 ML IVPB ONE (22:11)
[2017-04-19 22:15] LABS: Magnesium 1.4 mg/dL (1.6-2.6)
[2017-04-19 22:25] LABS: Large Platelets Present (Not Present); Lymphocytes # 0.4 K/mcL (0.6-4.6); Neutrophils # 0.3 K/mcL (1.6-8.9); Platelet Estimate Decreased (Normal); Reactive Lymphocytes Present (Not Present); Toxic Granulation Present (Not Present)
[2017-04-19 22:26] LABS: Anisocytosis 1+ (Not Present); Macrocytosis Present (Not Present)
[2017-04-19 22:27] LABS: Phosphorous 3.4 mg/dL (2.3-4.7)
[2017-04-19 22:28] LABS: Bilirubin,Urine Negative (Negative); Blood,Urine Negative (Negative); Clarity,Urine Clear (Clear); Color,Urine Yellow (Yellow); Glucose,Urine (UA) Normal (Normal); Ketones,Urine Negative (Negative); Leukocyte Esterase,Urine Negative (Negative); Nitrite,Urine Negative (Negative); PH,Urine 7.5 pH Units (5.0-8.0); Protein,Urine Negative (Neg-Trace); Specific Gravity,Urine 1.018 (1.010-1.025); Urobilinogen,Urine Normal (Normal)
[2017-04-19] MEDS ORDERED: Vancomycin 1,500 MG in D5% in Water 250 ML IVPB SCH (23:45)
[2017-04-20] MEDS ORDERED: Naloxone 0.4 MG/ML INJ IVP PRN (00:38)
[2017-04-20] MEDS ORDERED: Ondansetron 4 MG/2 ML VIAL IVP PRN (00:38)
[2017-04-20] MEDS ORDERED: 0.9 % Sodium Chloride 500 ML IVC ONE (00:46)
--- NOTE | 2017-04-20 00:55 | Internal Med History&Physical ---
Date of Encounter: 04/20/17 Time of Encounter: 00:47 Assessment and Plan (1) Neutropenic fever Current visit: Yes Status: Acute - Reported fevers as high as 101.3 last evening. - Afebrile in ED - WBC of 0.9, Absolute neutrophil count of 306 - Started on vancomycin and zosyn in ED, will continue - Suspected sources of left hand cellulitis vs PNA (2) Cellulitis Current visit: Yes Status: Acute - Left hand erythema and swelling after reported breaking glass on monday - Reported fevers as in HPI - Neutropenic. - Hand Xray showed no retained foreign body, soft tissue swelling. - Convering for neutropenic fever with vancomycin and zosyn. Qualifiers: Site of cellulitis: other site Qualified Code(s): L03.818 - Cellulitis of other sites (3) Anemia Current visit: No Status: Acute History of anemia requiring blood transfusions. - H/H stable at 10.5/31.8 - Continue to monitor with AM labs Qualifiers: Anemia type: unspecified type Qualified Code(s): D64.9 - Anemia, unspecified (4) Hodgkin's lymphoma Current visit: No Status: Chronic - Sees [facility] - Most recent Chemo last week - Continue treatment outpatient - Treatment for neutropenic fever as above. Qualifiers: Hodgkin lymphoma type: unspecified type Lymphoma site: unspecified region Qualified Code(s): C81.90 - Hodgkin lymphoma, unspecified, unspecified site (5) Hypomagnesemia Current visit: No Status: Acute - Mg of 1.4 on admission - Given 2 g replacement - Monitor with AM labs (6) Pneumonia Current visit: Yes Status: Acute - CXR in ED showed possible early PNA in left retrocardiac space - Complaint of new productive cough - Continue vanc and zosyn for neutropenic fever as above. Qualifiers: Pneumonia type: due to unspecified organism Laterality: left Lung location: unspecified part of lung Qualified Code(s): J18.9 - Pneumonia, unspecified organism (7) HTN (hypertension) Current visit: Yes Status: Chronic - Mildly Hypotensive in ED - Will give bolus of 500 mL NS and 80 mL/hr after - Home meds as tolerated Qualifiers: Hypertension type: essential hypertension Qualified Code(s): I10 - Essential (primary) hypertension (8) NSTEMI (non-ST elevated myocardial infarction) Current visit: Yes Status: Acute - Troponin 0.04 - No EKG changes - No chest pain - Likely demand ischemia. - Monitor for time being. (9) DVT prophylaxis Current visit: Yes Status: Acute SCDs Internal Medicine - H&P: HPI Chief complaint: weakness, fever Admitted From: Emergency Dept Plans for Post Hospital Care: Home History of present illness: Mr. Yañez is a 71 year old male who presented to ED with a complaint of weakness and fevers for 3 days. He has a PMhx of Hodgkins Lymphoma for which he is receiving chemotherapy, most recently 1 week ago. He states that this week his symptoms have been worse than usual including extreme fatigue, diffuse joint aches, and a measured fever of 101.3 last evening. he reports tolerating his chemo well until this point. He states that he also injured his hand on broken glass on Monday and has noticed some swelling and erythema in the left dorsal hand near the PIP. He also admits to new productive cough with thin white sputum. He denies any SOB, CP, dysuria, abdominal pain, change in bowel habits, nausea, vomiting, numbness, tingling. In ED, pt was noted to be tachycardic, tachypnic, and boarderline hypotensive. Afebrile in ED. Labs showed Absolute neutrophil count of 306. WBC of 0.9. Chest Xray showed possible early PNA. Hand Xray showed no retained foreign body. He was started on vanc and zosyn after blood cultures were obtained. Past Med Surg Social Fam HX - Past Medical History Medical history: atrial fibrillation, cancer, COPD, hypertension Psychiatric history: no psych history - Past Surgical History Surgical History: other - Social History Smoking Status: Current some day smoker Smokeless Tobacco Status: Yes Alcohol use: none Drug use: none Internal Medicine - H&P: Meds Acetaminophen [Pain Relief] 500 mg PO Q4-6H PRN 11/03/16 [History] Dabigatran [Pradaxa] 150 mg PO BID 11/03/16 [History] Digoxin [Lanoxin] 0.25 mg PO DAILY 11/03/16 [History] Diltiazem HCl [Diltiazem 24Hr Cd] 180 mg PO DAILY 11/03/16 [History] Dexamethasone [Decadron] 4 mg PO BID #40 tab 12/09/16 [Rx] Magic Mouthwash [Magic Mouthwash BLM] 10 ml PO QID PRN #240 ml 12/09/16 [Rx] Ondansetron [Zofran] 4 mg PO Q8HR PRN #90 tablet 12/09/16 [Rx] Prochlorperazine Maleate [Compazine] 10 mg PO Q8HR PRN #90 tablet 12/09/16 [Rx] Transparent Dressing [Tegaderm] 1 each TP DAILY #30 bandage 02/23/17 [Rx] Petrolatum,White [Aloe [place]] 1 appl TP ONCE 03/16/17 [History] Metoprolol XL (24 HR) Succ [Toprol Xl] 25 mg PO DAILY #30 tab.er.24h 03/17/17 [ Rx] Handicap Placard 1 each .ROUTE AD #1 each 04/03/17 [Rx] 3 Allergy/AdvReac Type Severity Reaction Status Date / Time Erythromycin Base Allergy Hives Verified 04/19/17 21:09 codeine AdvReac Confusion Verified 04/19/17 21:09 tamsulosin [From Flomax] AdvReac Shortness Verified 04/19/17 21:09 Of Breath All Systems PM: A 10-system review of systems was performed and is negative for pertinent findings except as documented above in the HPI. - Constitutional Constitutional: chills, fatigue, fever(s), weakness - Cardiovascular Cardiovascular ROS IM: irregular heart rhythm, no chest pain, no dyspnea, no dyspnea on exertion, no palpitations - Respiratory Respiratory: cough, change in phlegm color, no dyspnea, no hemoptysis, no dyspnea on exertion - Gastrointestinal Gastrointestinal: no abdominal pain, no change in bowel habits, no change in stool character, no constipation, no diarrhea, no nausea, no vomiting - Genitourinary Genitourinary ROS male: no dysuria, no urinary frequency, no urinary hesitancy - Musculoskeletal Musculoskeletal ROS IM: no numbness, no tingling - Integumentary Integumentary IM: new lesions (left hand) - Neurological Neurological ROS: weakness, no focal weakness, no numbness, no tingling - Constitutional Vitals: Temp Pulse Resp BP Pulse Ox 98.3 F 104 14 103/64 94 04/19/17 21:05 04/20/17 00:17 04/20/17 00:17 04/20/17 00:17 04/20/17 00:17 Exam: Gen.: Vitals noted. No acute distress. AAOx3 HEENT: oropharynx clear, Normocephalic, atraumatic, MMM Cardiac: Irregularly Irregular, no murmur, +S1/S2 Pulmonary: CTA bilaterally, no wheezes, rales or rhonchi, equal chest expansion Abdomen: soft, mild tenderness in LLL, BS noted, no guarding Back: Nontender throughout. MSK: ROM intact, no joint swelling noted Extremities: Left hand with erythematous and swollen dorsum of thumb. no BLE edema, nontender calf, no cyanosis or clubbing Neuro: A&Ox3, moves all extremities, no focal deficits Psych: Appropriate mood and behavior Internal Med - H&P Results - Labs CBC & Chem 7: 04/19/17 21:39 04/19/17 21:39 Labs: Short CBC 04/19/17 Range/Units 21:39 WBC 0.9 L* (4.3-11.1) K/mcL Hgb 10.5 L (12.9-16.9) g/dL Hct 31.8 L (37.5-50.1) % Plt Count 71 L (140-400) K/mcL Neutrophils # 0.3 L (1.6-8.9) K/mcL BMP 04/19/17 21:39 Sodium 131 L Potassium 4.3 Chloride 95 L Carbon Dioxide 27 BUN 17 Creatinine 0.77 Glucose 96 Calcium 8.7 Cardiac Enzymes 04/19/17 Range/Units 21:39 Troponin I 0.04 H* (0-0.03) ng/mL Liver Function 04/19/17 Range/Units 21:39 Total Bilirubin 0.8 (0.2-1.2) mg/dL AST 14 (5-34) Units/L ALT 25 (0-55) Units/L Alkaline Phosphatase 82 (38-126) Units/L Albumin 3.0 L (3.5-5.0) g/dL Urine 04/19/17 Range/Units 22:18 Urine Color Yellow (Yellow) Urine Clarity Clear (Clear) Urine pH 7.5 (5.0-8.0) pH Units Ur Specific [place] 1.018 (1.010-1.025) Urine Protein Negative (Neg-Trace) mg/dL Urine Glucose (UA) Normal (Normal) mg/dL - Impressions ITS Impressions Hand X-Ray 04/19/17 22:09 IMPRESSION: No acute osseous abnormality or radiopaque foreign body. D/ / Carolina Tapia MD / Carolina Tapia MD Interpreting Provider: Carolina Tapia MD Chest X-Ray 04/19/17 23:30 IMPRESSION: There is a small acute left retrocardiac infiltrate suspicious for small or early pneumonia. There is underlying emphysema and scattered fibrotic changes. D/ / Gary Steward MD / Gary Steward MD Interpreting Provider: Gary Steward MD
[2017-04-20] MEDS ORDERED: Vancomycin 1,250 MG in D5% in Water 250 ML IVPB SCH (01:00)
--- NOTE | 2017-04-20 01:29 | Event Note ---
Date of Encounter: 04/20/17 Time of Encounter: 01:29 Patient seen and examined with medical receptionist assistant. Angry with assessment and plan
[2017-04-20] MEDS: Acetaminophen 325 MG TABLET PO PRN ×2 (02:06→18:55)
[2017-04-20] MEDS ORDERED: Ipratropium/Albuterol Neb 3 ML IH SCH (04:00)
[2017-04-20] MEDS: Ipratropium/Albuterol Neb 3 ML IH SCH ×4 (04:08→21:55)
[2017-04-20] MEDS: 0.9 % Sodium Chloride 1,000 ML IVC SCH ×2 (05:59→19:00)
[2017-04-20 06:50] LABS: Red Cell Distribution Width 17.2 % (11.5-14.5)
[2017-04-20 06:52] LABS: Hematocrit 28.2 % (37.5-50.1); Hemoglobin 9.3 g/dL (12.9-16.9); Mean Corpuscular Hemoglobin 29.5 pg (28.0-33.3); Mean Corpuscular Volume 89.5 fL (83.0-100.0); Mean Platelet Volume 13.7 fL (9.4-12.4); Red Blood Count 3.15 M/mcL (4.19-5.50)
[2017-04-20 06:53] LABS: Eosinophils # 0.1 K/mcL (0.0-0.6); Monocytes # 0.2 K/mcL (0.0-1.3)
[2017-04-20 07:03] LABS: BUN/Creatinine Ratio 22 (6-26); Blood Urea Nitrogen 15 mg/dL (8-26); Calcium 8.6 mg/dL (8.6-10.8); Carbon Dioxide 28 mEq/L (19-29); Chloride 101 mEq/L (98-109); Glucose 121 mg/dL (70-99); Magnesium 2.3 mg/dL (1.6-2.6); Osmolality,Calculated 280 (280-300); Potassium 3.7 mEq/L (3.5-4.5); Sodium 134 mEq/L (136-145); eGFR For African Americans > 60 (> 60); eGFR For Non-African Americans > 60 (> 60)
[2017-04-20 07:05] LABS: Platelet Count 73 K/mcL (140-400)
--- NOTE | 2017-04-20 07:18 | Internal Med Progress Note ---
<Gorge Klein - Last Filed: 04/20/17 15:41> Date of Encounter: 04/20/17 Time of Encounter: 09:00 - Assessment and plan (1) Neutropenic fever Current Visit: Yes Status: Acute Assessment and plan: WBC of 0.9, Absolute neutrophil count of 306 Afebrile since admission; 1 recording 94 (likely false); subsequent check 97. Continue vancomycin and zosyn. Left lung base rhonchi, possible early PNA (2) Hodgkin's lymphoma Current Visit: No Status: Chronic Assessment and plan: Chemotherapy with Dr. [facility] since November Pet scan 1 month ago shows no gross lymph node pathology Most recent Chemo last week [facility] Treatment for neutropenic fever as above. Qualifiers: Hodgkin lymphoma type: unspecified type Lymphoma site: unspecified region Qualified Code(s): C81.90 - Hodgkin lymphoma, unspecified, unspecified site (3) Anemia Current Visit: No Status: Acute Assessment and plan: History of anemia requiring blood transfusions. - H/H stable at 10.5/31.8 - Continue to monitor with AM labs Qualifiers: Anemia type: unspecified type Qualified Code(s): D64.9 - Anemia, unspecified (4) HTN (hypertension) Current Visit: Yes Status: Chronic Assessment and plan: No hypotensive episodes since ED Home meds as tolerated Qualifiers: Hypertension type: essential hypertension Qualified Code(s): I10 - Essential (primary) hypertension (5) Elevated troponin Current Visit: Yes Status: Acute Assessment and plan: - Troponin 0.04 - No EKG changes - No chest pain - Likely demand ischemia. - Monitor for time being. (6) Paroxysmal a-fib Current Visit: No Status: Acute Assessment and plan: Currently symptomatic paroxysmal a-fib. Continue home meds: Diltiazem, Digoxin, Pradaxa, Metoprolol. (7) DVT prophylaxis Current Visit: Yes Status: Acute - Subjective Interval history: Admitted yesterday evening for neutropenic fever, hx of hogkins lymphoma, sees Dr. Carlos Enrique velasco at [facility], chemotherapy initiated in November 4 months ago , q2 weeks. Pet scan 1 month ago shows no evidence of gross lymph node involvement. Currently afebrile, with complaint of upper and lower extremity joint pain (mild). Last chemo 1 week ago, recent placed on Neulasta. ROS: denies shortness of breath, nausea/vomitting, chest pain, dysuria, leg swelling. - Constitutional Vitals: Temp Pulse Resp BP Pulse Ox 98.8 F 107 19 115/76 97 04/20/17 07:02 04/20/17 07:02 04/20/17 07:02 04/20/17 07:02 04/20/17 07:02 General appearance: Present: A&O X 3 - Head Head exam: Present: atraumatic, normal inspection Additional comments: alopecia - Respiratory Respiratory exam: Present: decreased breath sounds Additional comments: Left sided rhonchi - Cardiovascular Cardiovascular exam: Present: irregular rhythm, +S1, +S2 - Extremities Exam Extremities exam: Present: normal capillary refill, warm. Absent: calf tenderness, joint swelling - Skin Skin exam: Absent: pallor, petechiae Internal Medicine: Result - Labs CBC & Chem 7: 04/20/17 05:24 04/20/17 05:24 Labs: Short CBC 04/20/17 Range/Units 05:24 WBC 1.5 L D (4.3-11.1) K/mcL Hgb 9.3 L (12.9-16.9) g/dL Hct 28.2 L (37.5-50.1) % Plt Count 73 L (140-400) K/mcL BMP 04/20/17 05:24 Sodium 134 L Potassium 3.7 Chloride 101 Carbon Dioxide 28 BUN 15 Creatinine 0.68 L Glucose 121 H Calcium 8.6 Consult Discharge Plan - Plan [facility]errals: [facility] Care Provider[facility] - <Mo Boyd - Last Filed: 04/20/17 16:09> Date of Encounter: 04/20/17 - Assessment and plan (1) Sepsis Current Visit: Yes Status: Acute Qualifiers: Sepsis type: sepsis due to unspecified organism Qualified Code(s): A41.9 - Sepsis, unspecified organism - Constitutional Vitals: Temp Pulse Resp BP Pulse Ox 97.5 F L 117 16 102/63 98 04/20/17 12:29 04/20/17 12:08 04/20/17 12:08 04/20/17 12:08 04/20/17 12:08 Internal Medicine: Result - Labs CBC & Chem 7: 04/20/17 05:24 04/20/17 05:24 Labs: Short CBC 04/20/17 Range/Units 05:24 WBC 1.5 L D (4.3-11.1) K/mcL Hgb 9.3 L (12.9-16.9) g/dL Hct 28.2 L (37.5-50.1) % Plt Count 73 L (140-400) K/mcL Neutrophils # 0.3 L (1.6-8.9) K/mcL BMP 04/20/17 05:24 Sodium 134 L Potassium 3.7 Chloride 101 Carbon Dioxide 28 BUN 15 Creatinine 0.68 L Glucose 121 H Calcium 8.6 - Attending Attestation I examined this patient on 04/20/17 and my medical decision-making was reviewed with the Resident Physician. I agree with the documented findings, disposition and treatment plan as described except to the extent set forth below. 71 M admitted for neutropenis fever. he has a PMH of Afib on Pradaxa. He is seen ad evaluated at bedside Continues to be hypothermic and tachycardic. BP is acceptable, he has no new complains Physical exam remarkable for Left lung base rhonchi. Lowest temp 94. Labs and Imaging reviewed: ANC 300. WBC 1.5(0.9). PLT 73(71). chem WNL. CXR with L pneumonia. Troponin 0.04 A/P Sepsis, neutropenic fever, LLL pneumonia, hypothermia due to sepsis, acute thrombocytopenia due to sepsis. pancytopenia worsened by sepsis/chemo. Hodgkin lymphoma on chemotherapy. Elevated troponin from demand. Continue vanco/Zosyn Thrombocytopenia-continue pradaxa, benefits of anticoagulation outweigh risks Afib: HR uncontrolled, possible due to missed doses/sepsis. Resume home meds High risk condition patient condition is serious,prognosis is guarded He is full code
[2017-04-20 08:24] LABS: Neutrophils # 0.3 K/mcL (1.6-8.9); Platelet Estimate Decreased (Normal); Reactive Lymphocytes Present (Not Present)
[2017-04-20 08:25] LABS: Anisocytosis 1+ (Not Present); Dohle Bodies Present (Not Present); Toxic Granulation Present (Not Present)
[2017-04-20 08:26] LABS: Helmet Cells Present (Not Present); Poikilocytosis 1+ (Not Present); Schistocytes 1+ (Not Present)
[2017-04-20] MEDS ORDERED: Vancomycin 1,000 MG in D5% in Water 250 ML IVPB SCH (09:00)
[2017-04-20] MEDS: Vancomycin 1,000 MG in D5% in Water 250 ML IVPB SCH (16:31)
[2017-04-20] MEDS: Piperacillin/Tazobactam 3.375 GM in D5% in Water (Mini-Bag+) 100 ML IVPB SCH ×2 (16:31→23:22)
--- NOTE | 2017-04-20 17:06 | Electrocardiograph Report ---
[place] [id number] Test Date: 2017-04-19 Pat Name: Shamir Yañez Department: 103 Room: 3B21 Gender: M Door Manager: NATALIE : 1945 Requested By: Dustin Casiano Order Number: [id number] Reading MD: Amor Butts Measurements Intervals Home Rate: 112 P: TX: 0 QRS: 66 QRSD: 78 T: -90 QT: 297 QTc: 364 Interpretive Statements ATRIAL FIBRILLATION WITH RAPID VENTRICULAR RESPONSE SEPTAL MYOCARDIAL INFARCTION, OF INDETERMINATE AGE Electronically Signed On 04-20-2017 17:04:49 EDT by Amor Butts
--- NOTE | 2017-04-20 18:47 | Oncology Inp Consult Note ---
Date of Encounter: 04/20/17 Time of Encounter: 16:00 Assessment and Plan (1) Hodgkin's lymphoma Status: Chronic Assessment and plan: Hodgkin's lymphoma--nodular sclerosing type, CD30 positive in RS cells. PET positive posterior to stomach and in RP LNs bulky. Both above and below diaphragm--stage III, T6 sclerotic lesion--pt reports hairline fracture diagnosed last yr after fall. s/p-ABVD-C1 01/09, s/p 5 q2wkly Rx 02/23/17--anemia-- required PRBC, Paroxysmal A fib and GI complaints in the past Neutropenia, patient is status post Neulasta, given Neupogen injections in situ. 0.3. Await culture data, sputum culture negative. Agree with the vancomycin and Zosyn. Monitor culture report, CBC daily. PET has shown complete metabolic response. Will taper down chemo schedule Rpt DLCO/PFT Baseline PFTs DLCO 47-50%. Hx COPD Cough--bleo toxicity was in differential Hx A fib paroxysmal/?CHF. Hx COPD. History of prostate cancer status post radiation therapy completed 3 years ago per patient report his PSA has been checked routinely and no evidence of recurrence. Plan as above d/w him in detail Qualifiers: Hodgkin lymphoma type: unspecified type Lymphoma site: unspecified region Qualified Code(s): C81.90 - Hodgkin lymphoma, unspecified, unspecified site - Data of Consult Requesting Physician: Mo Boyd MD Primary Care Provider: [facility] - Consult Narrative Reason for consult: Hodgkin lymphoma, neutropenic fever History of present illness: 71-year-old male with medical history significant for heart disease, arrhythmia , on anti-coagulation, history of emphysema, was noted to have lymphadenopathy in imaging from March 2016 at the [facility]. patient has a history of prostate cancer man for which she completed radiation therapy or so ago at [facility]. Prior radiation to prostate, developed hematuria as a result of which he underwent CT imaging. Report CT abdomen with contrast from May 2016 showed abnormal bulky retroperitoneal adenopathy since [address] with contrast from then. Lymphadenopathy in the portacaval region measures 2.6 x 1.2 cm, 2.6 x 1.3 cm aortocaval lymph node, 2.6 x 1.8 cm left para-aortic lymph node. s/p bx of retroperitoneal LN--hodgkin's lymphoma nodular sclerosing type. RS cells are positive for CD30 PET --bulky adenopathy above and below diaphragm sclerotic lesion at T6 Started ABVD C1 on 12/29/16, s/p 5 q2wkly Rx last on 02/23/17. Hospitalized due to leg swelling, and dehydration/anemia--03/12 04/11-- PET, complete resolution of adenopathy Patient had last chemotherapy on 04/12/2017 he had also received Neulasta, flu shot. Patient reports sinus symptoms, congestion in the chest. He had a fever and was evaluated in the hospital. Chest x-ray shows a retrocardiac infiltrate, lab work showed neutropenia with ANC less than 1. He is hospitalized after bryant culture to rule out sepsis, on vancomycin and Zosyn. He has minimal leg swelling. He denies any pain issues, review of systems is otherwise negative. Charges Past Med Surg Social Fam HX - Past Medical History Medical history: atrial fibrillation, cancer, COPD, hypertension Psychiatric history: no psych history - Past Surgical History Surgical History: other - Social History Smoking Status: Current some day smoker Smokeless Tobacco Status: Yes Alcohol use: none Drug use: none - Family History Father Living Status: Age at : 82 Cause of : "Surgical Disaster during bypass sx" Hx Family Cardiac Disorders: Yes (blockage) Hx Family Respiratory Disorders: Yes (Emphysema) Hx Family Cancer: No Hx Family GI Disorders: No Hx Family Genitourinary Disorders: No Hx Family Endocrine Disorder: No Hx Family Musculoskeletal Disorders: No Hx Family Neuromuscular Disorders: No Hx Family Neurologic Disorders: No Hx Family HEENT Disorders: No Hx Family Autoimmune Disorders: No Hx Family Reproductive Disorders: No Hx Family Psychosocial Disorders: No Hx Family Medical Disorders: No Medications and Allergies Acetaminophen [Pain Relief] 500 mg PO Q4-6H PRN 11/03/16 [History] Dabigatran [Pradaxa] 150 mg PO BID 11/03/16 [History] Digoxin [Lanoxin] 0.25 mg PO DAILY 11/03/16 [History] Diltiazem HCl [Diltiazem 24Hr Cd] 180 mg PO DAILY 11/03/16 [History] Magic Mouthwash [Magic Mouthwash BLM] 10 ml PO QID PRN #240 ml 12/09/16 [Rx] Ondansetron [Zofran] 4 mg PO Q8HR PRN #90 tablet 12/09/16 [Rx] Prochlorperazine Maleate [Compazine] 10 mg PO Q8HR PRN #90 tablet 12/09/16 [Rx] Petrolatum,White [Aloe [place]] 1 appl TP ONCE 03/16/17 [History] Docusate Sodium [Dok] 100 mg PO BID PRN 04/20/17 [History] Furosemide [Lasix] 20 mg PO AD 04/20/17 [History] Metoprolol Succinate 50 mg PO DAILY 04/20/17 [History] 3 Allergy/AdvReac Type Severity Reaction Status Date / Time Erythromycin Base Allergy Hives Verified 04/19/17 21:09 codeine AdvReac Confusion Verified 04/19/17 21:09 tamsulosin [From Flomax] AdvReac Shortness Verified 04/19/17 21:09 Of Breath Review of systems: as in HPI Oncology - Exam - Constitutional Vitals: Temp Pulse Resp BP Pulse Ox 97.5 F L 113 18 98/70 96 04/20/17 18:29 04/20/17 18:29 04/20/17 18:29 04/20/17 18:29 04/20/17 18:29 General appearance: average body habitus - Head Head exam: Present: atraumatic - Eye Eye exam: Present: sclera anicteric - ENT ENT exam: Present: mucous membranes moist - Respiratory Respiratory exam: Present: CTAB, wheezes - Cardiovascular Cardiovascular exam: Present: +S1, +S2 - GI/Abdominal GI/Abdominal exam: Present: normal bowel sounds, soft - Extremities Exam Extremities exam: Present: pedal edema - Neurological Exam Neurological exam: Present: alert, CN II-XII intact, oriented X3 - Psychiatric Psychiatric exam: Present: normal affect - Skin Skin exam: Present: normal color Oncology - Results Labs: Short CBC 04/20/17 Range/Units 05:24 WBC 1.5 L D (4.3-11.1) K/mcL Hgb 9.3 L (12.9-16.9) g/dL Hct 28.2 L (37.5-50.1) % Plt Count 73 L (140-400) K/mcL Neutrophils # 0.3 L (1.6-8.9) K/mcL BMP 04/20/17 05:24 Sodium 134 L Potassium 3.7 Chloride 101 Carbon Dioxide 28 BUN 15 Creatinine 0.68 L Glucose 121 H Calcium 8.6 CXR reviewed as above Consult Discharge Plan - Plan Referrals: [facility] [Primary Care Provider] - 04/27/17 8:30 am
[2017-04-20] MEDS: *HR* Dabigatran 150 MG CAPSULE PO SCH (19:56)
[2017-04-20] MEDS ORDERED: Ketorolac 30 MG/ML VIAL IVP ONE (23:53)
[2017-04-21] MEDS: Vancomycin 1,000 MG in D5% in Water 250 ML IVPB SCH ×2 (03:40→23:47)
[2017-04-21] MEDS: Ipratropium/Albuterol Neb 3 ML IH SCH ×4 (03:49→23:19)
[2017-04-21 04:40] LABS: Hematocrit 27.4 % (37.5-50.1); Hemoglobin 8.9 g/dL (12.9-16.9); Immature Platelets 11.2 % (1.1-6.1); Mean Corpuscular HGB Conc 32.5 g/dL (31.6-35.5); Mean Corpuscular Hemoglobin 29.6 pg (28.0-33.3); Mean Platelet Volume 13.1 fL (9.4-12.4); Nucleated Red Blood Cells 0.4 /100 WBC (0); Red Blood Count 3.01 M/mcL (4.19-5.50)
[2017-04-21 05:02] LABS: BUN/Creatinine Ratio 20 (6-26); Blood Urea Nitrogen 15 mg/dL (8-26); Calcium 8.2 mg/dL (8.6-10.8); Carbon Dioxide 26 mEq/L (19-29); Chloride 103 mEq/L (98-109); Glucose 105 mg/dL (70-99); Osmolality,Calculated 279 (280-300); Potassium 3.6 mEq/L (3.5-4.5); Sodium 134 mEq/L (136-145); eGFR For African Americans > 60 (> 60); eGFR For Non-African Americans > 60 (> 60)
[2017-04-21 05:09] LABS: Platelet Count 81 K/mcL (140-400)
[2017-04-21 06:12] LABS: Dohle Bodies Present (Not Present); Eosinophils # 0.4 K/mcL (0.0-0.6); Lymphocytes # 0.9 K/mcL (0.6-4.6); Monocytes # 0.2 K/mcL (0.0-1.3); Neutrophils # 2.9 K/mcL (1.6-8.9); Platelet Estimate Decreased (Normal); Reactive Lymphocytes Present (Not Present)
[2017-04-21 06:13] LABS: Anisocytosis 1+ (Not Present)
[2017-04-21] MEDS: Piperacillin/Tazobactam 3.375 GM in D5% in Water (Mini-Bag+) 100 ML IVPB SCH ×3 (07:58→23:20)
[2017-04-21] MEDS: *HR* Dabigatran 150 MG CAPSULE PO SCH ×2 (08:07→20:52)
[2017-04-21] MEDS: *HR* Digoxin 0.25 MG TABLET PO SCH (08:07)
[2017-04-21] MEDS: Diltiazem CD (24hr) 180 MG CAPSULE PO SCH (08:07)
[2017-04-21] MEDS: Acetaminophen 325 MG TABLET PO PRN (08:07)
--- NOTE | 2017-04-21 08:44 | Internal Med Progress Note ---
<Mo Boyd T - Last Filed: 04/21/17 13:40> Date of Encounter: 04/21/17 - Assessment and plan (1) Sepsis Current Visit: Yes Status: Acute Qualifiers: Sepsis type: sepsis due to unspecified organism Qualified Code(s): A41.9 - Sepsis, unspecified organism - Constitutional Vitals: Temp Pulse Resp BP Pulse Ox 98.4 F 98 20 101/67 95 04/21/17 11:55 04/21/17 12:36 04/21/17 11:55 04/21/17 12:36 04/21/17 12:36 Internal Medicine: Result - Labs CBC & Chem 7: 04/21/17 04:17 04/21/17 04:17 Labs: Short CBC 04/21/17 Range/Units 04:17 WBC 4.5 D (4.3-11.1) K/mcL Hgb 8.9 L (12.9-16.9) g/dL Hct 27.4 L (37.5-50.1) % Plt Count 81 L (140-400) K/mcL Neutrophils # 2.9 (1.6-8.9) K/mcL BMP 04/21/17 04:17 Sodium 134 L Potassium 3.6 Chloride 103 Carbon Dioxide 26 BUN 15 Creatinine 0.76 Glucose 105 H Calcium 8.2 L Cardiac Enzymes 04/21/17 Range/Units 04:17 Troponin I 0.02 (0-0.03) ng/mL Consult Discharge Plan - Plan [facility]errals: [facility] Provider[facility] - 04/27/17 8:30 am - Attending Attestation I examined this patient on 04/21/17 and my medical decision-making was reviewed with the Resident Physician. I agree with the documented findings, disposition and treatment plan as described except to the extent set forth below. 71 M admitted for neutropenis fever. he has a PMH of Afib on Pradaxa. He is seen ad evaluated at bedside He denies new complains, he thinks he is clincally improving Physical exam remarkable for Left lung base rhonchi. Lowest temp 94. HR remains uncontrolled Labs and Imaging reviewed: ANC 2900. WBC 4.5(1.5). PLT 81(73). chem WNL. CXR with L pneumonia. Troponin negative A/P Sepsis, neutropenic fever, LLL pneumonia, hypothermia due to sepsis, acute thrombocytopenia due to sepsis. pancytopenia worsened by sepsis/chemo. Hodgkin lymphoma on chemotherapy. Elevated troponin from demand. Continue vanco/Zosyn-preliminary cultures negative, monitor chem, monitor vanco trough Thrombocytopenia-improving, continue pradaxa, benefits of anticoagulation outweigh risks Afib: HR uncontrolled, possible due to missed doses/sepsis. Resume home meds, give gentle boluses, obtain ECHO High risk condition patient condition is serious,prognosis is guarded He is full code <Gorge Klein - Last Filed: 04/21/17 21:07> Date of Encounter: 04/21/17 Time of Encounter: 10:00 - Assessment and plan (1) Neutropenic fever Current Visit: Yes Status: Acute Assessment and plan: WBC initially .9, now 4.5 Afebrile since admission Continue vancomycin and zosyn. Left lung base rhonchi persists. (2) Hodgkin's lymphoma Current Visit: No Status: Chronic Assessment and plan: Chemotherapy with Dr. Justina [facility] since November Consulting Oncology; Dr. Monaco on service Most recent Chemo last week; pet scan 1 month ago shows posterior stomach and retroperitoneal lymphadenopathy. Treatment for neutropenic fever as above. Qualifiers: Hodgkin lymphoma type: unspecified type Lymphoma site: unspecified region Qualified Code(s): C81.90 - Hodgkin lymphoma, unspecified, unspecified site (3) Sepsis Current Visit: Yes Status: Acute Assessment and plan: Initial admission labs meets sepsis criteria--tachycardia (despite a-fib medications), White Count .9; suspected source retrocardiac lung field Vanc/zosyn abx trend cbc, bmp blood cultures - negative nasal swab influenza - negative Qualifiers: Sepsis type: sepsis due to unspecified organism Qualified Code(s): A41.9 - Sepsis, unspecified organism (4) Anemia Current Visit: No Status: Acute Assessment and plan: History of anemia requiring blood transfusions. - H/H stable at 10.5/31.8 - Continue to monitor with AM labs Qualifiers: Anemia type: unspecified type Qualified Code(s): D64.9 - Anemia, unspecified (5) HTN (hypertension) Current Visit: Yes Status: Chronic Assessment and plan: No hypotensive episodes since ED Home meds as tolerated Qualifiers: Hypertension type: essential hypertension Qualified Code(s): I10 - Essential (primary) hypertension (6) Elevated troponin Current Visit: Yes Status: Acute Assessment and plan: Troponin 0.04; 0.02 No EKG changes No chest pain Likely demand ischemia. (7) Paroxysmal a-fib Current Visit: No Status: Acute Assessment and plan: Currently symptomatic paroxysmal a-fib. Continue home meds: Diltiazem, Digoxin, Pradaxa, Metoprolol. Tachycardia/a-fib persisting 1 day after home meds, ordering echo. (8) DVT prophylaxis Current Visit: Yes Status: Acute - Subjective Interval history: Dr. Monaco consulted; chemotherapy initiated in November 4 months ago, q2 weeks. Pet scan shows movie star stomach and retroperitoneal lymph node involvement. No complaint of chest pain, dyspnea, or shortness of breath. No nausea or vomitting. Sleep disrupted by peripheral IV/line obstruction as patient sleeps on his side and is awoken by alarm. Wants to use port. - Constitutional Vitals: Temp Pulse Resp BP Pulse Ox 97.8 F 127 20 112/77 97 04/21/17 07:30 04/21/17 07:30 04/21/17 07:30 04/21/17 07:30 04/21/17 07:30 General appearance: Present: A&O X 3 - Head Head exam: Present: atraumatic - Respiratory Respiratory exam: Present: CTAB. Absent: respiratory distress, rhonchi - Cardiovascular Cardiovascular exam: Present: irregular rhythm, +S1, +S2 - GI/Abdominal GI/Abdominal exam: Present: soft, no peritoneal signs. Absent: tenderness - Neurological Exam Neurological exam: Present: alert, no focal deficits Internal Medicine: Result - Labs CBC & Chem 7: 04/21/17 04:17 04/21/17 04:17 Labs: Short CBC 04/21/17 Range/Units 04:17 WBC 4.5 D (4.3-11.1) K/mcL Hgb 8.9 L (12.9-16.9) g/dL Hct 27.4 L (37.5-50.1) % Plt Count 81 L (140-400) K/mcL Neutrophils # 2.9 (1.6-8.9) K/mcL BMP 04/21/17 04:17 Sodium 134 L Potassium 3.6 Chloride 103 Carbon Dioxide 26 BUN 15 Creatinine 0.76 Glucose 105 H Calcium 8.2 L Cardiac Enzymes 04/21/17 Range/Units 04:17 Troponin I 0.02 (0-0.03) ng/mL
[2017-04-21] MEDS ORDERED: Metoprolol XL (24 HR) Succ 50 MG TAB.ER.24H PO SCH (09:00)
[2017-04-21] MEDS: 0.9 % Sodium Chloride 1,000 ML IVC SCH ×2 (10:31→23:21)
[2017-04-21] MEDS ORDERED: Aminoglycoside Consult 1 EACH MC ONE (10:39)
[2017-04-21] MEDS ORDERED: Metoprolol XL (24 HR) Succ 25 MG TAB.ER.24H PO ONE (11:22)
[2017-04-21] MEDS ORDERED: 0.9 % Sodium Chloride 500 ML IVC ONE (11:24)
[2017-04-21] MEDS ORDERED: Vancomycin 1,250 MG in D5% in Water 250 ML IVPB SCH (19:00)
[2017-04-22 02:50] LABS: Hematocrit 26.9 % (37.5-50.1); Hemoglobin 8.6 g/dL (12.9-16.9); Mean Corpuscular Hemoglobin 29.4 pg (28.0-33.3); Mean Corpuscular Volume 91.8 fL (83.0-100.0); Mean Platelet Volume 12.5 fL (9.4-12.4); Platelet Count 107 K/mcL (140-400); Red Blood Count 2.93 M/mcL (4.19-5.50); Red Cell Distribution Width 17.2 % (11.5-14.5)
[2017-04-22] MEDS: Ipratropium/Albuterol Neb 3 ML IH SCH ×2 (03:15→10:37)
[2017-04-22 04:12] LABS: Anisocytosis 1+ (Not Present); Lymphocytes # 0.8 K/mcL (0.6-4.6); Monocytes # 1.5 K/mcL (0.0-1.3); Neutrophils # 7.9 K/mcL (1.6-8.9); Platelet Estimate Decreased (Normal)
[2017-04-22 04:13] LABS: Large Platelets Present (Not Present); Macrocytosis Present (Not Present); Microcytosis Present (Not Present); Reactive Lymphocytes Present (Not Present)
[2017-04-22] MEDS: Piperacillin/Tazobactam 3.375 GM in D5% in Water (Mini-Bag+) 100 ML IVPB SCH (07:49)
[2017-04-22] MEDS: *HR* Dabigatran 150 MG CAPSULE PO SCH (07:51)
[2017-04-22] MEDS: *HR* Digoxin 0.25 MG TABLET PO SCH (07:51)
[2017-04-22 08:02] VITALS: BP 112/75
[2017-04-22] MEDS: Diltiazem CD (24hr) 180 MG CAPSULE PO SCH (08:17)
[2017-04-22] MEDS ORDERED: Metoprolol XL (24 HR) Succ 50 MG TAB.ER.24H PO SCH (09:00)
--- NOTE | 2017-04-22 09:26 | Event Note ---
Date of Encounter: 04/22/17 Time of Encounter: 08:00 I was approached by primary RN who stated patient was upset that his Cardizem dose was incorrect. She and I went to talk to the patient together. Patient had multiple complaints and was threatening to stop using [facility] for his healthcare and switch to [facility] daughters instead. I addressed his concerns with him and apologized for the events that appear to have upset him. He said he had a long list of complaints and I attempted to address them individually. His first complaint was he was upset about IV placement in his right AC. He did not give a reason for being upset other than it had left a puncture neftali in the area and that he "had to talk to that [facility] doctor to get it moved". The IV had already been moved to wrist. I apologized for his inconvenience and empathized with him being upset. He then stated that he was upset that his digoxin had been moved to morning, he says he normally takes at home at night. I told him that was an easy fix and we would work with pharmacy to get it moved back. He still did not seem to be happy. I then broached the subject of his Cardizem. He says that he breaks the capsule open at home and takes a " measured amount" of medication daily. I explained to him that we were unable to break open the capsule and give part of the medication. Before I could suggest we trial a lower dose, he stated we were done, picked up his cell phone and called his daughter to come get him. I went back into his room approximately 40 minutes later asked him if he wanted to stay. He says no he will follow-up with the [facility] the [facility]. I told him I would give him prescriptions for his antibiotics to continue to treat his pneumonia. He denied needs for any other medications or inhalers, etc. I did not do a physical exam on this patient. Patient is leaving AGAINST MEDICAL ADVICE. Patient is receiving IV Vanco and Zosyn. Discussed with pharmacy. Levaquin was thought to be the best choice. He shall be sent home with Levaquin 750 mg daily for 7 days.
--- NOTE | 2017-04-22 09:32 | Internal Med Progress Note ---
Date of Encounter: 04/22/17 Time of Encounter: 08:00 - Subjective Interval history: Patient signed out AMA. See event note. - Constitutional Vitals: Temp Pulse Resp BP Pulse Ox 97.8 F 128 14 112/75 98 04/22/17 08:01 04/22/17 08:01 04/22/17 08:01 04/22/17 08:01 04/22/17 08:01 - Head Head exam: Present: normal inspection - Eye Eye exam: Present: sclera anicteric - ENT ENT exam: Present: mucous membranes moist - Neurological Exam Neurological exam: Absent: facial droop, speech deficit Internal Medicine: Result - Labs CBC & Chem 7: 04/22/17 02:19 04/21/17 04:17 Labs: Short CBC 04/22/17 Range/Units 02:19 WBC 10.4 D (4.3-11.1) K/mcL Hgb 8.6 L (12.9-16.9) g/dL Hct 26.9 L (37.5-50.1) % Plt Count 107 L (140-400) K/mcL Neutrophils # 7.9 (1.6-8.9) K/mcL - Impressions Impressions Echocardiogram 04/21/17 11:23 Impressions: LVEF 55%. Normal LV chamber size, wall thickness and function. Indeterminate diastolic function. Normal right ventricular structure and function. No evidence of pulmonary hypertension. No significant valvular dysfunction. Left Ventricular Wall Motion: Rest Echo Findings All wall segments showed normal motion. Findings: Study Quality * Technically adequate exam. ECG Findings * Atrial fibrillation. Left Ventricle * LVEF 55%. * Normal LV chamber size, wall thickness and function. * Indeterminate diastolic function. Right Ventricle * Normal right ventricular structure and function. Left Atrium * Mild to moderately dilated left atrium. Right Atrium * Normal right atrial size. Interatrial Septum * Interatrial septum not well evaluated. Aortic Valve * Aortic valve not well visualized. * Mildly calcified aortic valve leaflets. * No aortic regurgitation. * No aortic stenosis. Mitral Valve * Normal mitral valve structure. * Mild mitral regurgitation. * No mitral stenosis. Tricuspid Valve * Normal tricuspid valve structure and function. * Trace tricuspid regurgitation. * No evidence of pulmonary hypertension. Pulmonic Valve * Pulmonic valve is not well visualized. * No pulmonic regurgitation. Aorta * Normally sized aortic root. Pericardium * The pericardium appears normal. IVC * Normal IVC dimensions and inspiratory collapse. Pulmonary Artery * Normal visualized portions of the main pulmonary artery. Consult Discharge Plan - Plan Referrals: [facility],PCP [Primary Care Provider] - 04/27/17 8:30 am
--- NOTE | 2017-04-22 09:34 | Discharge Summary ---
Date of Encounter: 04/22/17 Time of Encounter: 08:00 - Discharge Diagnosis (1) DVT prophylaxis Priority: Secondary Status: Acute (2) Neutropenic fever Priority: Secondary Status: Acute (3) Pneumonia Priority: Primary Status: Acute Qualifiers: Pneumonia type: due to unspecified organism Laterality: left Lung location: unspecified part of lung Qualified Code(s): J18.9 - Pneumonia, unspecified organism (4) Hodgkin's lymphoma Priority: Secondary Status: Chronic Qualifiers: Hodgkin lymphoma type: unspecified type Lymphoma site: unspecified region Qualified Code(s): C81.90 - Hodgkin lymphoma, unspecified, unspecified site - Discharge Medications Prescriptions: Levofloxacin [Levaquin] 750 mg PO DAILY #7 tablet Home Medications: Acetaminophen [Pain Relief] 500 mg PO Q4-6H PRN 11/03/16 [History] Dabigatran [Pradaxa] 150 mg PO BID 11/03/16 [History] Digoxin [Lanoxin] 0.25 mg PO DAILY 11/03/16 [History] Diltiazem HCl [Diltiazem 24Hr Cd] 180 mg PO DAILY 11/03/16 [History] Magic Mouthwash [Magic Mouthwash BLM] 10 ml PO QID PRN #240 ml 12/09/16 [Rx] Ondansetron [Zofran] 4 mg PO Q8HR PRN #90 tablet 12/09/16 [Rx] Prochlorperazine Maleate [Compazine] 10 mg PO Q8HR PRN #90 tablet 12/09/16 [Rx] Petrolatum,White [Aloe Wendel] 1 appl TP ONCE 03/16/17 [History] Docusate Sodium [Dok] 100 mg PO BID PRN 04/20/17 [History] Furosemide [Lasix] 20 mg PO AD 04/20/17 [History] Metoprolol Succinate 50 mg PO DAILY 04/20/17 [History] Levofloxacin [Levaquin] 750 mg PO DAILY #7 tablet 04/22/17 [Rx] Allergies/Adverse Reactions: 3 Allergy/AdvReac Type Severity Reaction Status Date / Time Erythromycin Base Allergy Hives Verified 04/19/17 21:09 codeine AdvReac Confusion Verified 04/19/17 21:09 tamsulosin [From Flomax] AdvReac Shortness Verified 04/19/17 21:09 Of Breath Procedures/tests Complete & Pending: Procedures Performed prior 72 hours Category Date Time Status EV echocardiogram Routine Y 04/21/17 11:23 Completed Date of admission: 04/20/17 01:29 Primary care physician: ANGELES NICOLE Consults: 04/20/17 10:57 Consult to Oncology [CONS] Routine Consulting Provider: [facility] Reason for Consult: Hodgkins Lymphoma Time Notified: 10:58 Call Completed: Yes Discharging clinician: Chantel Pena - Patient Status Disposition: Left Against Medical Advice Condition: Fair Overall status at discharge: patient is back to baseline - Discharge Instructions Follow Up With: [facility],PCP [Primary Care Provider] - 04/27/17 8:30 am Additional Instructions: Follow up with primary care at the [facility] - Diet and Activity Activity: resume usual activities as tolerated Diet: advance to your usual diet Hospital course: Patient has decided to sign out AMA. Please see events noted on same date. Prescription sent to [facility] for Levaquin 750 mg by mouth daily 7 days. I did not do a physical examination on this patient prior to him leaving AMA. - Time Spent with Patient Total time spent providing and/or coordinating discharge services: Less than 30 minutes - Constitutional Vitals: Temp Pulse Resp BP Pulse Ox 97.8 F 128 14 112/75 98 04/22/17 08:01 04/22/17 08:01 04/22/17 08:01 04/22/17 08:01 04/22/17 08:01 General appearance: Present: A&O X 3
== END 2017-04-22 10:40 | disposition left against medical advice (07) | DRG 871 ==
LOC: EMEROO 21:04 → 3BNU 21:04 → SUATTDRO 04-20 01:29
PROVIDERS: ADMIT Hospitalist; ATTEND Internal Medicine